=== PATIENT | female | born 1960 | race Caucasian/White ===

== ENCOUNTER → 2018-10-16 08:14 | Outpatient (CLI) | payer BC, SELFPAY ==
[2018-10-16 09:47] LABS: Anion Gap 8 (5-15); BUN 14 mg/dL (7-18); BUN/Creat Ratio 20.9 RATIO (10-20); Calcium,Total 8.8 mg/dL (8.5-10.1); Chloride 105 mmol/L (98-107); Cholesterol 221 mg/dL (200); Creatinine, Serum 0.67 mg/dL (0.55-1.02); EST Glomerular Filtration Rate 97 mL/min (>60); Est Glom Filt Rate - Afr Amer 117 mL/min (>60); Glucose 88 mg/dL (74-106); High Density Lipoprotein 60 mg/dL; Potassium 4.4 mmol/L (3.5-5.1); Sodium Level 141 mmol/L (136-145); Triglycerides 158 mg/dL; Very Low Density Lipoprotein 32 mg/dL (5-40)
== END ==
PROVIDERS: Family Provider Family Medicine; PCP Family Medicine; Referring Provider Nurse Practitioner Adult Health; Visit Provider Nurse Practitioner Adult Health
DX: Z13.220 Encounter for screening for lipoid disorders (principal); Z13.1 Encounter for screening for diabetes mellitus
CPT/HCPCS: 36415; 80048; 80061

== ENCOUNTER → 2018-10-29 15:37 | Outpatient (CLI) | payer BC, SELFPAY ==
--- NOTE | 2018-10-29 15:47 | BD_ITS ---
STUDY: DUAL ENERGY X-RAY ABSORPTIOMETRY / DXA REASON FOR EXAM: Female, 58 years old. Early menopause. Loss of height. TECHNIQUE: Bone Mineral Density (BMD) measurements of lumbar spine and bilateral hips were obtained. COMPARISON: None. FINDINGS: Lumbar Spine (L1-L4): g/cm2 (1.128) / T-score (-0.6) / Z-score (0.3) Findings are suggestive of normal bone density with a low fracture risk. Left Femur Total: g/cm2 (0.937) / T-score (-0.6) / Z-score (0.1) Left Femoral Neck: g/cm2 (0.988) / T-score (-0.4) / Z-score (0.7) Right Femur Total: g/cm2 (0.936) / T-score (-0.6) / Z-score (0.1) Right Femoral Neck: g/cm2 (0.941) / T-score (-0.7) / Z-score (0.4) BD/Dexa Bone Density Study IMPRESSION: The patient is considered normal as outlined below according to World Ryan Organization (WHO) criteria with a low fracture risk. Reference Information: The T-score is the number of standard deviations above or below the standard which is normal for young adults at their peak bone mineral density. The World Health Organization (WHO) interprets the T-scores as follows: Above -1 Normal bone density Between -1 and -2.5 Osteopenia Equal to / or below -2.5 Osteoporosis As a practical clinical guideline, osteopenia may be graded as follows: Mild -1 through -1.5 Moderate -1.6 through -2.0 Severe -2.1 through -2.4 The Z-score is the number of standard deviations above or below age-matched controls. A Z-score of less than -1.5 would be considered abnormal. References: 1. NIH Osteoporosis and Related Bone Diseases http://www.osteo.org 2. International Society for Clinical Densitometry http://www.iscd.org 3. National Osteoporosis Foundation http://www.nof.org Electronically Signed: Teo Gamboa MD at 14:55 EST Tel [phone], Service support ,
== END ==
PROVIDERS: Family Provider Family Medicine; PCP Family Medicine; Visit Provider Nurse Practitioner Adult Health
DX: Z78.0 Asymptomatic menopausal state (principal)
CPT/HCPCS: 77080

== ENCOUNTER → 2018-11-12 07:37 | Outpatient (CLI) | payer BC, SELFPAY ==
--- NOTE | 2018-11-12 07:39 | BI_ITS ---
MAMMOGRAPHY - BILATERAL SCREENING REASON FOR EXAM: Female, 58 years old. Routine annual screening examination. PERTINENT HISTORY: Non-contributory. TECHNIQUE: Digital bilateral breast pauline (3D mammographic acquisition) in the CC and MLO projections. 2-D mediolateral oblique (MLO) and craniocaudad (CC) views of both breasts were obtained. CAD: Full Field Digital Mammography with Computer Added Detection was performed. COMPARISON: Comparison is made with prior examination dated August 10, 2008. FINDINGS: Breast Composition: The breasts are extremely dense, which lowers the sensitivity of mammography. There are no dominant masses or suspicious calcifications. No other significant abnormalities are identified. There has been no significant change since the prior study. BI/SCREENING MAMM (CAD), BILAT IMPRESSION: Stable bilateral screening mammogram. Yearly follow-up mammogram recommended. (A) ASSESSMENT CATEGORY: BIRADS Category 1: Negative. A letter regarding these results will be sent to the patient by the facility within 30 days. Approximately 10% of breast cancers are not detected by mammography. A normal mammogram should not delay biopsy of a clinically suspicious abnormality. [id number] Electronically Signed: Teo Gamboa MD at 14:59 EST Tel [phone], Service support ,
== END ==
PROVIDERS: Family Provider Family Medicine; PCP Family Medicine; Visit Provider Nurse Practitioner Adult Health
DX: Z12.31 Encounter for screening mammogram for malignant neoplasm of breast (principal); Z78.0 Asymptomatic menopausal state
CPT/HCPCS: 77063; 77067

== ENCOUNTER 2019-08-08 12:29 | Emergency (ER) | payer BC, SELFPAY ==
[2019-08-08 12:30] VITALS: BP 115/73; PULSE 72; RESP 18; TEMP 36.5; O2SAT 95; BMI 25.0
--- NOTE | 2019-08-08 13:05 | ED.DCSUM_ITS ---
- ER Visit Summary Date of Service: 08/08/19 Chief Complaint: Fell complaining of right lateral ankle pain and left knee pain History of Present Illness: The patient is a 59 F past medical history. Patient states she was walking out of her house. When she stepped off the step she rolled her right ankle and then fell landing on her left knee. Did not hit her head. No LOC no neck or back pain. Physical Examination: Middle-aged female. Vital signs are stable. HEENT exam unremarkable atraumatic. No signs of trauma to her face or scalp. C-spine nontender normal range of motion her neck. Lungs clear to auscultation bilaterally. Chest wall nontender. Heart regular rhythm no murmur. Abdomen soft nontender. Pelvic girdle intact. Back cervical, thoracic lumbar spine and back nontender. Neurologically she is awake alert moving all 4 extremities. She has swelling to her right lateral malleolus and is tender medial malleolus is nontender. DP pulses are intact. She is able to dorsi plantarflexion of the right foot is normal touch sensation. Can wiggle her toes. The right foot. Right knee and hip are nontender. Left ankle left foot nontender neurovascular intact. Left hip nontender with normal range of motion no shortening or rotation. Left knee there is no abrasion medially. She is able to do flexion extension. She is able to extend the knee completely. The quadriceps patella and infrapatellar tendons are intact. The ACL, PCL, LCL and MCL appear to be intact. There is mild tenderness medially. Test Results: X-ray right ankle 3 views no acute abnormality. Old fracture medial aspect of the distal tibia. Soft tissue swelling of the lateral malleolus. I did go over the films with the patient. Read by myself. X-ray right knee 4 views with no acute abnormality read by myself. Emergency Department Course and Treatment: Repeat exam patient is doing well at 1420 p.m. She denied discussed test results and went over the x-rays. Treatment Plan: Aircast right ankle. Follow-up if not improving. Patient elevate. Motrin. Disposition: Discharge Impression: Acute fall Right ankle second-degree lateral malleolus sprain Left knee contusion and abrasion This note was generated with Data[employer] software. It may contain incorrect words, spelling, and punctuation that were not noted in review of the chart prior to signing ED Disposition - Plan for ED Patient: Referrals: Aj Villanueva MD [STAFF PHYSICIAN] -
--- NOTE | 2019-08-08 13:36 | RAD_ITS ---
STUDY: X-RAY - RIGHT ANKLE REASON FOR EXAM: Female, 59 years old. Fall. Pain. TECHNIQUE: 3 view(s) of the ankle. COMPARISON: None. FINDINGS: Normal visualized distal tibia and fibula. Small avulsion chip fractures involving the undersurface of the medial malleolus and lateral malleolus. Normal tibiotalar articulation and ankle mortise. Normal visualized talus and calcaneus. The visualized subtalar, talonavicular, calcaneocuboid and tarsal articulations are normal. Soft tissue swelling overlying the lateral malleolus. RAD/Ankle min 3 Views IMPRESSION: Small avulsion fracture fragments in the undersurfaces of the lateral malleolus and medial malleolus of the right ankle. Electronically Signed: Kadeem Christohper MD at 14:49 EDT , Service support ,
--- NOTE | 2019-08-08 13:36 | RAD_ITS ---
STUDY: X-RAY - LEFT KNEE REASON FOR EXAM: Female, 59 years old. Fall. Pain. TECHNIQUE: 4 view(s) of the knee. COMPARISON: September 01, 2014 FINDINGS: Normal visualized distal femur. Normal visualized proximal tibia and fibula. Normal proximal tibiofibular articulation. There is no demonstrated fracture. There is mild degenerative arthrosis of the medial femorotibial compartment. There is moderate degenerative arthrosis of the lateral femorotibial compartment with moderate joint space narrowing. There is mild degenerative arthrosis of the patellofemoral articulation. The soft tissue structures are unremarkable. RAD/Knee 4 or More Views IMPRESSION: Degenerative arthrosis. Electronically Signed: Kvng Landis MD at 15:03 EDT , Service support ,
--- NOTE | 2019-08-08 14:29 | ED.DEP ---
ED Disposition - Plan for ED Patient: Disposition: Home or Assisted Living Instructions: CONTUSION, Lower Extremity, Sprain, Ankle, with X-Ray Referrals: Deangelo Magana MD [Primary Care Provider] - 1 Week if not improving Additional Instructions: Elevate the right ankle to decrease pain and swelling. Aircast whenever up and walking. Increase activity as tolerated. You may want to start out with crutches and touchdown weightbearing. Keep left knee abrasion clean and antibiotic ointment to prevent infection. Follow-up with your doctor if not improving in 1 to 2 weeks.
[2019-08-08 14:50] VITALS: RESP 18
== END 2019-08-08 14:51 | disposition home or self-care (01) ==
PROVIDERS: Emergency Provider Emergency Medicine; Family Provider Family Medicine; PCP Family Medicine
DX: S93.492A Sprain of other ligament of left ankle, initial encounter (principal); S80.02XA Contusion of left knee, initial encounter; S80.212A Abrasion, left knee, initial encounter; W10.8XXA Fall (on) (from) other stairs and steps, initial encounter; Y93.01 Activity, walking, marching and hiking; Y92.009 Unspecified place in unspecified non-institutional (private) residence as the place of occurrence of the external cause; M17.12 Unilateral primary osteoarthritis, left knee
CPT/HCPCS: 73564; 73610; 99284

== ENCOUNTER → 2019-08-25 09:53 | Outpatient (CLI) | payer BC, SELFPAY ==
[2019-08-08 12:30] VITALS: BMI 25.0
[2019-08-25 13:22] LABS: Anion Gap 9 (5-15); BUN 19 mg/dL (7-18); BUN/Creat Ratio 29.6 RATIO (10-20); Calcium,Total 9.3 mg/dL (8.5-10.1); Chloride 105 mmol/L (98-107); Cholesterol 296 mg/dL (200); Creatinine, Serum 0.64 mg/dL (0.55-1.02); EST Glomerular Filtration Rate 101 mL/min (>60); Est Glom Filt Rate - Afr Amer 123 mL/min (>60); Glucose 82 mg/dL (74-106); High Density Lipoprotein 51 mg/dL; Potassium 4.4 mmol/L (3.5-5.1); Sodium Level 140 mmol/L (136-145); Triglycerides 214 mg/dL; Very Low Density Lipoprotein 43 mg/dL (5-40)
== END ==
PROVIDERS: Family Provider Family Medicine; PCP Family Medicine; Referring Provider Nurse Practitioner Adult Health; Visit Provider Nurse Practitioner Adult Health
DX: Z13.1 Encounter for screening for diabetes mellitus (principal); Z13.220 Encounter for screening for lipoid disorders
CPT/HCPCS: 36415; 80048; 80061

== ENCOUNTER → 2019-10-30 08:31 | Outpatient (CLI) | payer BC, SELFPAY ==
[2019-10-30 10:35] LABS: AST(SGOT) 25 U/L (15-37); Alanine Aminotransfer ALT/SGPT 29 U/L (13-56); Cholesterol 185 mg/dL (200); High Density Lipoprotein 66 mg/dL; Triglycerides 77 mg/dL; Very Low Density Lipoprotein 15 mg/dL (5-40)
== END ==
PROVIDERS: Family Provider Family Medicine; PCP Family Medicine; Referring Provider Nurse Practitioner Adult Health; Visit Provider Nurse Practitioner Adult Health
DX: Z13.1 Encounter for screening for diabetes mellitus (principal); Z13.220 Encounter for screening for lipoid disorders; E78.5 Hyperlipidemia, unspecified
CPT/HCPCS: 36415; 80061; 84450; 84460

== ENCOUNTER → 2019-11-02 16:13 | Outpatient (CLI) | payer BC, SELFPAY ==
--- NOTE | 2019-11-02 16:20 | RAD_ITS ---
STUDY: X-RAY - RIGHT ANKLE REASON FOR EXAM: Female, 59 years old. Sprain TECHNIQUE: 4 view(s) of the ankle. COMPARISON: August 08, 2019 FINDINGS: There appears to be very tiny old avulsion or chip fracture of the distal fibula plafond. There appears to be very tiny old chip fracture of the distal tibial plafond with mild separation of fracture fragment. Normal medial and lateral malleoli. Normal tibiotalar articulation and ankle mortise. Normal visualized talus and calcaneus. The visualized subtalar, talonavicular, calcaneocuboid and tarsal articulations are normal. There is mild bimalleolar soft tissue swelling. RAD/Ankle min 3 Views IMPRESSION: Old tibial and fibular fractures. No evidence for acute fracture Electronically Signed: Jaswant Drew MD at 19:19 EST , Service support ,
== END ==
PROVIDERS: Family Provider Family Medicine; PCP Family Medicine; Referring Provider Family Medicine; Visit Provider Family Medicine
DX: S93.401A Sprain of unspecified ligament of right ankle, initial encounter (principal)
CPT/HCPCS: 73610

== ENCOUNTER 2020-05-30 16:00 | Outpatient (RCR) | payer BC, SELFPAY ==
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
--- NOTE | 2020-05-31 07:03 | HP.PTREVAL ---
Dr. Deangelo Magana MD, It has been my pleasure to treat MILENA JEAN BAPTISTE over the last 10 visits for Right Hip Flexor and Left Post Meniscal Tear. Please see the progress note below for an update on the physical therapy plan of care! Subjective: LEFS filled out today. Pt sees PT for a recheck after this session w/ [facility]. pt is wearing an over the counter brace that is relieving some of her pain. pt L knee is still symptomatic and swollen. Objective/Function: pt feels her L knee is not the same since the flare up after PT session last Friday. pt sees PT after this visit w/ [facility]. Plan Plan: Recheck by PT today.Focus on LE and core strength/stabilization bilateral Goals Goal 1:: Patient will be I with HEP and progression Goal Time Frame: 4-6 Weeks Goal Progress: Progressing Goal 2:: Patient will sls for 15 sec without LOB Goal Time Frame: 4-6 Weeks Goal Progress: Progressing Goal 3:: Patient will maintain proper posture t/o tx session to demo increased core s/s Goal Time Frame: 4-6 Weeks Goal Progress: Progressing Goal 4:: Patient will report 0/10 pain for 1 week Goal Time Frame: 4-6 Weeks Goal Progress: Not Progressing Goal 5:: Patient will demo 5/5 strength in LE Goal Time Frame: 4-6 Weeks Goal Progress: Progressing Anticipated Interventions Patient/Client Instruction: Educate patient on: Benefits of Fitness Program Therapeutic Exercise to Include: Strength training, Balance training, Body mechanics, Postural training, Flexibilty training, Gait and locomotor training, Dynamic Lumbar Stabilization For the Purpose of:: To improve muscle performance and motor function TENS: Yes Cryotherapy (ice pack, ice massage): Yes Thermo therapy (hot pack): Yes Ultrasound (thermal/non thermal): Yes For the Purpose of:: To improve nutrient delivery to tissue Please do not hesitate to contact me at [phone] by phone or if you have questions or concerns regarding this new plan of care! Sincerely, Marlene Kidd DPT
--- NOTE | 2020-08-21 14:42 | HP.PT.NRP ---
MILENA JEAN BAPTISTE was seen in my office for initial evaluation on 05/02/20. The following Plan of Care was established for this patient: Initial Frequency: 3x /Week Initial Duration: 4 Weeks Patient/Client Instruction: Educate patient on: Benefits of Fitness Program Therapeutic Exercise to Include: Strength training, Balance training, Body mechanics, Postural training, Flexibilty training, Gait and locomotor training, Dynamic Lumbar Stabilization For the Purpose of:: To improve muscle performance and motor function TENS: Yes Cryotherapy (ice pack, ice massage): Yes Thermo therapy (hot pack): Yes Ultrasound (thermal/non thermal): Yes For the Purpose of:: To improve nutrient delivery to tissue This patient was last seen in our office . Pertinent comments regarding their Physical therapy will appear below: At this point I will be discontinuing this patient from physical therapy. I would be happy to see this patient again in the future if found appropriate by the physician. Thank you! Marlnee Kidd DPT
== END 2020-05-30 19:00 | disposition home or self-care (01) ==
LOC: PT 16:00
PROVIDERS: PCP Family Medicine; Referring Provider Family Medicine; Visit Provider Family Medicine
DX: S83.207D Unspecified tear of unspecified meniscus, current injury, left knee, subsequent encounter (principal); S76.011D Strain of muscle, fascia and tendon of right hip, subsequent encounter
CPT/HCPCS: 97014; 97035; 97110; 97162; 97164; G0283

== ENCOUNTER → 2020-07-20 15:41 | Outpatient (CLI) | payer BC, SELFPAY ==
--- NOTE | 2020-07-20 15:45 | RAD_ITS ---
STUDY: X-RAY - LEFT KNEE REASON FOR EXAM: Female, 60 years old. Left knee pain, fell one year ago TECHNIQUE: 4 view(s) of the knee. COMPARISON: None. FINDINGS: Normal visualized distal femur. Normal visualized proximal tibia and fibula. Normal proximal tibiofibular articulation. Mild narrowing with faint chondrocalcinosis medial femorotibial compartment. Mild narrowing with faint chondrocalcinosis of the lateral femorotibial compartment. Normal patellofemoral articulation. Soft tissue swelling overlying the medial aspect of the left knee. RAD/Knee 4 or More Views IMPRESSION: 1. Mild narrowing with faint chondrocalcinosis in the medial and lateral femorotibial compartments of the left knee. 2. No acute fracture, old fracture or acute osseous abnormality of the left knee. Electronically Signed: Kadeem Christopher MD at 9:00 EDT , Service support ,
== END ==
PROVIDERS: PCP Family Medicine; Referring Provider Family Medicine; Visit Provider Family Medicine
DX: M25.562 Pain in left knee (principal)
CPT/HCPCS: 73564

== ENCOUNTER → 2020-08-04 15:29 | Outpatient (CLI) | payer BC, SELFPAY ==
--- NOTE | 2020-08-04 15:34 | MRI_ITS ---
STUDY: MRI LEFT KNEE REASON FOR EXAM: Female, 60 years old. Knee pain TECHNIQUE: Standardized fat and water weighted pulse sequences were obtained in all 3 orthogonal planes. COMPARISON: 07/20/2020 FINDINGS: Normal medial meniscus. Normal hyaline cartilage of the medial femorotibial compartment. Normal medial femoral condyle and tibial plateau. Normal medial collateral ligamentous complex (MCL). Normal distal semimembranosus, gracilis and semitendinosus tendons. 3 cm horizontal cleavage tear of the lateral meniscus with extrusion of the body. There is diffuse, full thickness articular cartilage loss of the lateral femorotibial compartment. There is reactive marrow edema of the lateral femoral condyle and tibial plateau. Normal proximal tibiofibular articulation. Normal lateral collateral (fibular) ligament. Normal popliteus tendon. Normal biceps femoris tendon. Normal anterior cruciate ligament (ACL). Normal posterior cruciate ligament (PCL). Shallow trochlear groove with lateral subluxation of patella and edema superolateral Hoffa''s fat pad consistent with patellofemoral maltracking. There is diffuse, less than 50% thickness articular cartilage loss of the patellofemoral compartment. Normal medial and lateral patellar retinaculum. Normal quadriceps tendon. Normal patellar tendon. Normal Hoffa''s fat pad. There is a small volume joint effusion. There is a Brumfield''s cyst. The soft tissues are unremarkable. The otherwise visualized osseous structures are unremarkable. MRI/Lower Ext Joint Only (Routine) IMPRESSION: 1. Lateral compartment failure with a 3 cm horizontal cleavage tear of the anterior horn and body the lateral meniscus with extrusion of the body, full-thickness chondral loss, and subchondral edema of the lateral femoral condyle lateral tibial plateau. 2. Patellofemoral maltracking with mild chondromalacia. Electronically Signed: Yassine Corona MD at 16:49 EDT Tel , Service support ,
== END ==
PROVIDERS: PCP Family Medicine; Referring Provider Family Medicine; Visit Provider Family Medicine
DX: S83.282A Other tear of lateral meniscus, current injury, left knee, initial encounter (principal); X58.XXXA Exposure to other specified factors, initial encounter
CPT/HCPCS: 73721

== ENCOUNTER → 2020-09-23 08:57 | Outpatient (CLI) | payer BC, SELFPAY ==
[2020-09-23 09:51] LABS: Cholesterol 173 mg/dL (200); High Density Lipoprotein 65 mg/dL; Triglycerides 80 mg/dL; Very Low Density Lipoprotein 16 mg/dL (5-40)
== END ==
PROVIDERS: PCP Family Medicine; Referring Provider Nurse Practitioner Adult Health; Visit Provider Nurse Practitioner Adult Health
DX: E78.5 Hyperlipidemia, unspecified (principal)
CPT/HCPCS: 36415; 80061

== ENCOUNTER → 2021-09-22 09:01 | Outpatient (CLI) | payer BC, SELFPAY ==
[2021-09-22 10:08] LABS: ALB/GLOB Ratio 1.1 RATIO (0.9-2.4); AST(SGOT) 26 U/L (15-37); Alanine Aminotransfer ALT/SGPT 32 U/L (13-56); Alkaline Phosphatase 84 U/L (45-117); Anion Gap 11 (5-15); BUN 21 mg/dL (7-18); BUN/Creat Ratio 32.5 RATIO (10-20); Calcium,Total 8.9 mg/dL (8.5-10.1); Chloride 104 mmol/L (98-107); Cholesterol 177 mg/dL (200); Creatinine, Serum 0.65 mg/dL (0.55-1.02); EST Glomerular Filtration Rate 100 mL/min (>60); Est Glom Filt Rate - Afr Amer 121 mL/min (>60); Globulin 3.8 g/dL (2.2-4.2); Glucose 97 mg/dL (74-106); High Density Lipoprotein 69 mg/dL; Potassium 4.1 mmol/L (3.5-5.1); Protein, Total 7.8 g/dL (6.4-8.2); Sodium Level 139 mmol/L (136-145); Triglycerides 90 mg/dL; Very Low Density Lipoprotein 18 mg/dL (5-40)
[2021-09-24 10:36] LABS: Vitamin D,25 Hydroxy 30.4 ng/mL
== END ==
PROVIDERS: PCP Family Medicine; Visit Provider Family Medicine
DX: E78.5 Hyperlipidemia, unspecified (principal)
CPT/HCPCS: 36415; 80053; 80061; 82306

== ENCOUNTER → 2021-10-11 16:24 | Outpatient (CLI) | payer BC, SELFPAY ==
[2021-10-11 17:42] LABS: Hematocrit 39.2 % (37-47); Hemoglobin 13.2 g/dL (12.0-15.0); Mean Corp Hgb Conc 33.7 g/dL (32-36); Mean Corpuscular Hgb 36.4 pg (27.0-32.0); Mean Platelet Vol. 9.1 fl (6.2-12.0); Platelet Count 228 K/mm3 (150-450); RBC Distribution Width CV 12.8 % (11.6-14.6); RBC Distribution Width SD 51.7 fl (35.1-43.9); Red Blood Count 3.63 M/mm3 (4.2-5.4); White Blood Count 7.4 K/mm3 (4.4-11.0)
[2021-10-11 18:02] LABS: Erythrocyte Sedimentation Rate 6 mm/hr (0-30)
[2021-10-11 18:24] LABS: Vitamin B12 713 pg/mL (211-911); Vitamin D,25 Hydroxy 35.6 ng/mL
[2021-10-11 18:50] LABS: Iron 100 ug/dL (50-170); Thyroid Stim Hormone (TSH) 1.86 uIU/mL (0.358-3.74)
== END ==
PROVIDERS: PCP Family Medicine; Referring Provider Family Medicine; Visit Provider Family Medicine
DX: R53.83 Other fatigue (principal)
CPT/HCPCS: 36415; 82306; 82607; 83540; 84443; 85027; 85652

== ENCOUNTER → 2021-10-31 | Outpatient (CLI) | payer BC, SELFPAY | END | disposition home or self-care (01) | PROVIDERS: PCP Family Medicine; Referring Provider Family Medicine; Visit Provider Family Medicine | DX: R10.84 Generalized abdominal pain (principal) | CPT/HCPCS: 87086; 87088 ==

== ENCOUNTER → 2021-11-14 07:40 | Outpatient (CLI) | payer BC, SELFPAY ==
--- NOTE | 2021-11-14 07:43 | CT_ITS ---
STUDY: LOW DOSE CT LUNG CANCER SCREENING REASON FOR EXAM: Female, 61 years old. TOBACCO USE RADIATION DOSAGE (If Supplied By Facility): CTDIvol = ( 3.02 ) mGy, DLP = ( 100.43 ) mGycm TECHNIQUE: No contrast was administered. Low dose technique was utilized (average mAS-38 and kVp 120). 1.25 mm axial source images with a slice interval of 1.25-mm were reconstructed in lung windows. 2.5 mm axial source images with a slice interval of 2.5-mm were reconstructed in lung windows. 5.0 mm axial source images with a slice interval of 5.0-mm were reconstructed in soft tissue windows. Nodule measured using lung windows on PACS and/or independent workstation with automated measurement of minimum and maximum diameter. Nodule measurement reported as average diameter rounded to the nearest whole number. Growth is defined as an increase ins size of greater than 1.5 mm. COMPARISON: None. NODULES: No suspicious nodule is seen. Emphysema: Diffuse centrilobular emphysematous changes worse in the upper lobes. Endobronchial lesion: None Aorta: Atherosclerotic plaque formation. Coronary arteries: Coronary artery calcification. Heart: Unremarkable. Pulmonary artery: Unremarkable. Mediastinal nodes: Small mediastinal lymph nodes. Other chest and abdominal findings: Degenerative changes of the dorsal spine. CT/Low Dose CT Lung Screening IMPRESSION: Lung-RADS category 2 - Continue annual screening with LDCT in 12 months. IMPORTANT NOTES FOR USE: ACR Lung-RADS Version 1.1 Assessment Categories Release Date: 2018 Category: Coded 0-4 bases on nodule(s) with highest degree of suspicion. Negative screen is defined as categories 1 and 2; a positive screen is defined as categories 3 and 4. Category 3 and 4A nodules that are unchanged on interval CT should be coded as category 2, and individuals returned to screening in 12 months. Category 4X: Category 3 or 4 nodules with additional imaging findings that increase the suspicion of lung cancer, such as spiculation, GGN that doubles in size in 1 year, enlarged lymph notes, etc. Category Modifiers: S (significant finding unrelated to lung cancer) Electronically Signed: Teo Gamboa MD at 11:20 EST , Service support ,
--- NOTE | 2021-11-14 07:51 | CT_ITS ---
STUDY: CT ABDOMEN AND PELVIS WITH CONTRAST REASON FOR EXAM: Female, 61 years old. Diffuse abdominal pain. Mucous and blood in the stool. RADIATION DOSAGE (If Supplied By Facility): CTDIvol = ( 13.83 ) mGy, DLP = ( 871.80 ) mGycm TECHNIQUE: Transaxial images were obtained from the dome of the diaphragm to the symphysis pubis with oral contrast. Oral and amp; IV Readi-CAT and amp; 100mL Isovue-300 was administered. Sagittal and coronal images were reconstructed. Individualized dose optimization techniques were used for this CT. COMPARISON: None. FINDINGS: The visualized lung bases are unremarkable. Coronary artery calcification. Normal liver. Normal gallbladder and extrahepatic biliary system. Normal spleen. Normal pancreas. Normal bilateral adrenal glands. Normal right kidney. Normal left kidney. Normal visualized stomach. Normal small intestine. Moderate amount of fecal material is seen throughout the colon. The appendix is visualized and appears normal. There is scattered atherosclerotic calcification of the abdominal aorta, without a demonstrated aneurysm. Normal inferior vena cava. Normal retroperitoneum. Normal urinary bladder. There is a small umbilical hernia containing fat. There are degenerative changes of the visualized lumbar spine. CT/Abdomen/Pelvis WITH Contrast IMPRESSION: Moderate amount of fecal material is seen throughout the colon. Electronically Signed: Teo Gamboa MD at 9:44 EST , Service support ,
== END ==
PROVIDERS: PCP Family Medicine; Referring Provider Family Medicine; Visit Provider Family Medicine
DX: R10.84 Generalized abdominal pain (principal); F17.210 Nicotine dependence, cigarettes, uncomplicated
CPT/HCPCS: 71271; 74177; Q9967

== ENCOUNTER 2022-03-03 13:52 | Emergency (ER) | payer BC, SELFPAY ==
[2022-03-03 13:52] VITALS: BP 148/109; PULSE 117; RESP 15; TEMP 37; O2SAT 96; BMI 25.2
--- NOTE | 2022-03-03 14:04 | EDS_ITS ---
HPI History of Present Illness Chief Complaint: General Illness Narrative Narrative: 61-year-old female presenting with several days of intermittent diarrhea, mild headache, left-sided neck pain. Patient states that she has felt somewhat rundown but is able to do her ADLs. She is able to ambulate without weakness or falling. She states her abdomen sometimes hurt on the right side in the lower quadrant. She states this is nothing that is very bad. She has associated nausea. She has not been vomiting. She denies black or bloody stools. Patient states that the left side of her neck started hurting after several days of being ill and laying around. She is been doing neck exercises and trying to relieve the stiffness. She has trouble turning to the left. She has a mild intermittent headache. No visual complaints. She has not had a fever. Patient initially went to the urgent care prior to coming to the emergency room and was sent to the emergency room for meningitis work-up. PFSH PFSH Home Medications cyclobenzaprine 10 mg PO TID PRN PRN 08/08/19 [History Last Taken Unknown] Allergy/AdvReac Type Severity Reaction Status Date / Time No Known Allergies Allergy Verified 03/03/22 13:52 Social History Smoking Status: Former smoker ROS ROS ED Constitutional Constitutional ED: Denies chills or fever(s) Eyes Eyes: Denies blurry vision or diplopia ENT ENT ED: Denies rhinorrhea or sore throat Cardiovascular Cardiovascular: Denies chest pain or palpitations Respiratory/Chest Respiratory/Chest: Denies cough or dyspnea Gastrointestinal Gastrointestinal: Reports abdominal pain Genitourinary Genitourinary ED: Denies dysuria or hematuria Musculoskeletal Musculoskeletal: Reports neck pain Integumentary Denies rash Neurologic Neurologic: Reports headache(s); Denies paresthesias or weakness Psychiatric Psychiatric: Denies anxiety or depression EXAM Physical Exam Const Vital Signs: 03/03/22 13:52 03/03/22 14:18 03/03/22 14:29 Temperature 98.6 F 97.9 F Temperature Source Temporal Oral Pulse Rate 117 H 92 Respiratory Rate 15 24 H Respiratory Effort Normal Non-Labored Blood Pressure 148/109 H 137/87 H Blood Pressure Mean 122 103 Pulse Ox 96 Oxygen Delivery Method Room Air 03/03/22 15:15 Temperature 98.0 F Temperature Source Temporal Pulse Rate 71 Respiratory Rate 14 Respiratory Effort Blood Pressure 115/85 H Blood Pressure Mean 95 Pulse Ox Oxygen Delivery Method Positive well nourished General Appearance ED: NAD BRAYDON Reports moist mucous membranes Negative for trauma Eyes PERRL and EOMs intact bilaterally General Eye ED: Negative for pale conjunctiva or scleral icterus Neck no lymphadenopathy and supple General: normal visual inspection and trachea midline; Negative for meningeal signs Resp normal respiratory effort and clear to auscultation bilaterally Cardio regular rhythm Rate: tachycardic GI normal to inspection, nondistended, normoactive bowel sounds Auscultation: normoactive bowel sounds Back/Spine no CVA tenderness Back/Spine Narrative: Tenderness also elicited on palpation of the trapezius. Cervical Spine: cervical ROM abnormal Cervical ROM Abnormal Details: rotation to the left decreased, Negative for step off deformity and paracervical muscle tenderness Paracervical Muscle Tenderness Details: left Extremity normal to inspection General Extremety ED: Negative for edema or tenderness General Extremity: Negative for edema Neuro oriented x3, CN's II-XII intact bilaterally and no sensory deficits noted Sensorium / Orientation: alert Motor Exam: strength 5/5 throughout Skin no rashes or lesions noted MDM MDM MDM Narrative Medical decision making narrative: Patient presenting with generalized fatigue, mild intermittent right-sided abdominal pain, diarrhea for about a week. She has not had a fever or temperature over 100. Initially seen in urgent care and sent to the ER for concern for meningitis. Initial interview the patient is well-appearing awake and alert standing with the lights on. She is talking to me moving nodding yes and shaking her head no to questions. She does have some limitation with turning to the left and has some tenderness over the left trapezius. No midline spinal deformity step-off. No meningeal signs. Her abdominal exam is benign. Patient given Zofran, Toradol, IV fluids. Will check basic lab work and urinalysis. She has no respiratory complaints. CBC and CMP are unremarkable. Urinalysis does show 25 occult blood. No evidence of infection. Patient feeling improved after Toradol and Zofran. Discussed normal lab work with her. CT of the abdomen pelvis is obtained and does not show any acute abdominal abnormality. Patient feeling improved at this time. Although she was sent here for meningitis rule out I do not believe she has meningitis. Her neck pain is in the paraspinal musculature and in the left trapezius. There is no spinal tenderness. Did not believe she needs imaging or an LP. Patient believes she injured her neck while retching and vomiting. I feel she is stable for discharge home and I will write her for [facility] for home. Patient given return precautions. Impression: 1. Nausea/vomiting 2. Diarrhea 3. Abdominal pain 4. Headache 5. Cervical strain Lab Data Attestation: I reviewed the patient's lab results. Labs: Laboratory Results - last 24 hr 03/03/22 03/03/22 03/03/22 14:20 14:20 14:25 WBC 10.1 RBC 3.85 L Hgb 13.9 Hct 41.0 MCV 106.5 H MCH 36.1 H MCHC 33.9 RDW Std Deviation 49.1 H RDW Coeff of Chandana 12.4 Plt Count 251 MPV 9.0 Immature Gran % (Auto) 0.300 Neut % (Auto) 72.9 H Lymph % (Auto) 15.6 L [place] % (Auto) 10.6 H Eos % (Auto) 0.3 Baso % (Auto) 0.3 Absolute Neuts (auto) 7.4 Absolute Lymphs (auto) 1.57 Nucleated RBC % 0 Sodium 134 L Potassium 3.5 Chloride 102 Carbon Dioxide 24.0 Anion Gap 8 BUN 16 Creatinine 0.68 Estim Creat Clear Calc 80.16 Est GFR (MDRD) Af Amer 114 Est GFR (MDRD) Non-Af 94 BUN/Creatinine Ratio 23.5 H Glucose 102 Calcium 9.1 Total Bilirubin 0.80 AST 19 ALT 24 Alkaline Phosphatase 77 Total Protein 8.2 Albumin 3.6 Globulin 4.6 H Albumin/Globulin Ratio 0.8 L Lipase 58 L Urine Color Yellow Urine Clarity Clear Urine pH 6.0 Ur Specific [place] 1.015 Urine Protein Negative Urine Glucose (UA) Normal Urine Ketones Negative Urine Occult Blood 25 H Urine Nitrite Negative Urine Bilirubin Negative Urine Urobilinogen Normal Ur Leukocyte Esterase 25 H Urine RBC 0 SEEN Urine WBC 0-5 SEEN Ur Squamous Epith Cells 0 SEEN Urine Bacteria 0 SEEN Urine Mucus 0 SEEN Radiography Diagnostic Testing: Clinical Impression(s) from Imaging Studies Abdomen/Pelvis CT 03/03/22 14:48 IMPRESSION: No acute findings in the abdomen or pelvis. Individualized dose optimization techniques were used for this CT. at 1620 Reported and signed by: Stiven Curtis MD Electronically Signed: Stiven Curtis MD at 16:19 EDT Reading Location ID and State: [facility] / [place] Tel , Service support , Discharge Plan Triage Chief Complaint: General Illness ED Provider: Jewel Yuan Dx/Rx/DC Orders Prescriptions: No Action cyclobenzaprine 10 MG tablet 10 mg PO TID PRN PRN (Reason: Pain) RF: 0 Primary Care Provider: Deangelo Magana
[2022-03-03 14:28] LABS: Absolute Lymphocyte Count 1.57 X10^3/uL (0.83-4.51); Absolute Neutrophil Count 7.4 X10^3/uL (2.0-7.7); Basophil# 0.03 X10^3/uL; Basophil% 0.3 % (0-1); Eosinophil# 0.03 X10^3/uL; Eosinophils% 0.3 % (0-5); Hemoglobin 13.9 g/dL (12.0-15.0); Lymphocyte # 1.57 X10^3/ul (0.83-4.51); Lymphocyte % 15.6 % (19-41); Mean Corp Hgb Conc 33.9 g/dL (32-36); Mean Corpuscular Hgb 36.1 pg (27.0-32.0); Mean Corpuscular Volume 106.5 fL (81-99); Monocyte# 1.07 X10^3/uL; Monocyte% 10.6 % (0-10); NRBC Flagged by Analyzer 0 % (0-5); Neutrophil # 7.36 X10^3/uL (2.7-7.7); Neutrophil % 72.9 % (47-70); Platelet Count 251 K/mm3 (150-450); RBC Distribution Width CV 12.4 % (11.6-14.6); RBC Distribution Width SD 49.1 fl (35.1-43.9); Red Blood Count 3.85 M/mm3 (4.2-5.4); White Blood Count 10.1 K/mm3 (4.4-11.0)
[2022-03-03] MEDS: 0.9% Normal Saline 1,000 ML 1000 ML IV (14:28)
[2022-03-03 14:29] VITALS: BP 137/87; PULSE 92; RESP 24; TEMP 36.6
[2022-03-03] MEDS: Ondansetron 4 MG/2 ML Vial IV (14:34)
[2022-03-03] MEDS: Ketorolac 15 MG/ML Vial IV (14:34)
[2022-03-03 14:42] LABS: Bacteria 0 SEEN /hpf (None Seen); Mucous, Urine 0 SEEN /hpf (<or=2+); Red Blood Cells-Urine 0 SEEN /hpf (0-5); Squamous Epithelial Cells - UA 0 SEEN /hpf (5-10)
[2022-03-03 14:44] LABS: Color, Urine Yellow (Yellow); Glucose, Dipstick Normal (Normal); Ketone-Dipstick Negative (Negative); Leukocyte Esterase-Dipstick 25 /ul (Negative); Nitrite-Dipstick Negative (Negative); Occult Blood-Urine 25 /ul (Negative); Protein-Dipstick Negative (Negative); Specific Gravity, Urine 1.015 (1.002-1.030); Urine Bilirubin Dipstick Negative (Negative); Urine Clarity Clear (Clear); Urine Urobilinogen Normal (Normal)
[2022-03-03 14:44] LABS: ALB/GLOB Ratio 0.8 RATIO (0.9-2.4); AST(SGOT) 19 U/L (15-37); Alanine Aminotransfer ALT/SGPT 24 U/L (13-56); Albumin, Serum 3.6 g/dL (3.2-5.0); Alkaline Phosphatase 77 U/L (45-117); Anion Gap 8 (5-15); BUN 16 mg/dL (7-18); BUN/Creat Ratio 23.5 RATIO (10-20); Calcium,Total 9.1 mg/dL (8.5-10.1); Chloride 102 mmol/L (98-107); Creatinine, Serum 0.68 mg/dL (0.55-1.02); EST Glomerular Filtration Rate 94 mL/min (>60); Est Glom Filt Rate - Afr Amer 114 mL/min (>60); Estimated Creatinine Clearance 80.16 ml/min; Globulin 4.6 g/dL (2.2-4.2); Glucose 102 mg/dL (74-106); Lipase 58 U/L (73-393); Potassium 3.5 mmol/L (3.5-5.1); Protein, Total 8.2 g/dL (6.4-8.2); Sodium Level 134 mmol/L (136-145)
--- NOTE | 2022-03-03 14:48 | CT_ITS ---
HISTORY: abdominal pain EXAMINATION: CT Abdomen And Pelvis W/O Contrast Injection TECHNIQUE: Multiple axial images were obtained of the abdomen and pelvis without oral or IV contrast. A radiation dose optimization technique was used for this scan. IV Contrast dosage and agent: None. Oral contrast: None. COMPARISON: None FINDINGS: LOWER CHEST: Lung bases are clear. No cardiomegaly or pericardial effusion. LIVER: Homogeneous. No focal mass. GALLBLADDER AND BILIARY TREE: No calcified gallstones. No gallbladder distension or wall edema. No intra- or extrahepatic biliary ductal dilation. PANCREAS: No focal cystic or solid mass. SPLEEN: Normal size without focal cystic or solid mass. ADRENAL GLANDS: No nodules. KIDNEYS AND URETERS: Normal renal size and position. No hydronephrosis or nephrolithiasis. PERITONEUM: No ascites or free air. BOWEL: Normal appendix. No stomach or bowel distension. No focal inflammatory bowel wall changes. LYMPH NODES: No enlarged mesenteric or retroperitoneal lymph nodes. VESSELS: Aorta is non-dilated. URINARY BLADDER: Unremarkable. REPRODUCTIVE ORGANS: No pelvic masses. BTL clips. ABDOMINAL WALL: Small fat-containing umbilical hernia. BONES: No acute or aggressive abnormality. CT/Abdomen/Pelvis without Cont IMPRESSION: No acute findings in the abdomen or pelvis. Individualized dose optimization techniques were used for this CT. at 1620 Reported and signed by: Stiven Curtis MD Electronically Signed: Stiven Curtis MD at 16:19 EDT ,
--- NOTE | 2022-03-03 14:51 | ED.RN ---
This nurse at bedside when patient returns from restroom obtaining urine sample. Patient refused all treatment and became quiet, stated I don't want anything I can't drive on. On obtaining further details patient explained frustration with being sent for meningitis and wanting a antibiotic prescription and leaving. This nurse had lengthy conversation with patient on symptoms of meningitis also with concerns patient addressed about repetitive questions, explanation of ER process and how the questions asked are part of continuity of care. Also further explanation of the type of medication ordered and how neither would cause concern for ability of ADL or driving. Appreciation of explanations from patient and acceptance of further testing was accepted. Dr. Yuan aware of all patient concerns
[2022-03-03 14:52] LABS: White Blood Cells 0-5 SEEN /hpf (0-5)
[2022-03-03 15:15] VITALS: BP 115/85; PULSE 71; RESP 14; TEMP 36.7
--- NOTE | 2022-03-03 16:26 | EKG12_ITS ---
Test Reason : Blood Pressure : / mmHG Vent. Rate : 086 BPM Atrial Rate : 086 BPM P-R Int : 126 ms QRS Dur : 080 ms QT Int : 366 ms P-R-T Axes : 000 -25 034 degrees QTc Int : 437 ms Normal sinus rhythm Nonspecific ST and T wave abnormality Abnormal ECG When compared with ECG of 03-SEP-2005 17:21, No significant change was found Confirmed by ANAID DENNISON, JEFF ([id number]), medical transcription editor JESSICA BRO ([id number]) on 03/08/2022 1:29:18 PM Referred By: JOSE A Confirmed By:JULIAN WORRELL MD
[2022-03-03 16:45] VITALS: BP 113/78; PULSE 74
== END 2022-03-03 16:45 | disposition home or self-care (01) ==
PROVIDERS: Emergency Provider Student in an Organized Health Care Education/Training Program; PCP Family Medicine; Visit Provider Student in an Organized Health Care Education/Training Program
DX: R11.2 Nausea with vomiting, unspecified (principal); R19.7 Diarrhea, unspecified; R10.31 Right lower quadrant pain; S16.1XXA Strain of muscle, fascia and tendon at neck level, initial encounter; X58.XXXA Exposure to other specified factors, initial encounter; Z87.891 Personal history of nicotine dependence
CPT/HCPCS: 74176; 80053; 81001; 83690; 85025; 93005; 96361; 96374; 96375; 99282; J7030; A4216; J2405

== ENCOUNTER 2022-03-07 11:27 | Outpatient (CLI) | payer BC, SELFPAY ==
--- NOTE | 2022-03-07 11:29 | RAD_ITS ---
STUDY: X-RAY - CERVICAL SPINE REASON FOR EXAM: Female, 61 years old. CERVICALGIA TECHNIQUE: XR Spine Cervical 4 or 5 Views COMPARISON: None FINDINGS: Normal anterior atlantoaxial articulation. The odontoid process is obscured by the overlying hard palate on the open mouth view. Therefore, it is not fully evaluated by plain film. There is straightening of the normal cervical lordosis. There is multi-level endplate spondylosis. There is multi-level degenerative disc disease with multilevel disc space narrowing. There is multi-level osseous foraminal stenosis. Grade 1 anterolisthesis of C4 on C5. The soft tissue structures are unremarkable. RAD/Cerv Spine 4 or 5 Views IMPRESSION: There are degenerative changes as noted above. There is mild straightening of the normal cervical lordosis. This can suggest neck strain. The odontoid process is obscured by the overlying hard palate on the open mouth view. Therefore, it is not fully evaluated by plain film. Electronically Signed: Corey Camacho MD at 15:38 EDT ,
== END 2022-03-07 23:59 | disposition home or self-care (01) ==
LOC: MTRAD 11:28
PROVIDERS: PCP Family Medicine; Referring Provider Family Medicine; Visit Provider Family Medicine
DX: M54.2 Cervicalgia (principal)
CPT/HCPCS: 72050

== ENCOUNTER 2022-06-10 15:30 | Outpatient (RCR) | payer BC, SELFPAY ==
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
--- NOTE | 2022-04-08 16:32 | HP.PTREVAL_ITS ---
Dr. Deangelo Magana MD, It has been my pleasure to treat MILENA JEAN BAPTISTE over the last 10 visits for cervicalgia. Please see the progress note below for an update on the physical therapy plan of care! Subjective: PATIENT REPORTS SHE CAN MOVE HER HEAD A LOT BETTER SINCE STARTING PT AND THE PAIN IS A LOT LESS. PATIENT REPORTS HER NECK PAIN IS STILL CONSTANT AND RANGES 1-5/10. 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 PATIENT REPORTS INTERMITTENT PAIN, NUMBESS AND TINGLING DOWN DINA UE'S ONE AT A TIME TO WRIST. INTERMITTENT DENTAL LABORATORY SUPERVISOR WEAKNESS DINA. DAILY HEADACHES. OVER-ALL PATIENT REPORTS EVERYTHING IS MUCH BETTER THAN IT WAS AND IMPROVING. Objective/Function: PATIENT WAS SEEN TODAY FOR RE-ASSESSMENT OF PROGRESS TOWARD THE SET PT GOALS AND THE NEED FOR FURTHER PHYSICAL THERAPY VS READINESS FOR DISCHARGE. PATIENT IS A GOOD CANDIDATE TO CONTINUE PT BASED ON PROGRESS MADE AND ROOM FOR FURTHER IMPROVEMENT. PATIENT IS AGREEABLE. UPON EXAM TODAY: Cervical Mvmt Loss: Flex: MIN - PULLS IN NECK. Pro: NIL. Ext: MOD. Ret: MOD - PULLS IN LEFT ARM. RSB: MOD. LSB: STEFANIA. R Rot: MOD. L Rot: MOD. ROM DINA UE'S: WFL. STRENGTH: DINA UE'S GROSSLY 5/5 WITH MMT'ING EXCEPT SHLDS 4/5. RIGHT HAND DOMINANT WITH A RIGHT DENTAL LABORATORY SUPERVISOR STRENGTH OF 25 LBS AND L 35 LBS. SENSATION: DINA UE LIGHT TOUCH SENSATION IS GROSSLY INTACT AND SYMMETRICAL. Plan Plan: CONTINUE PT 2X'S A WEEK X 3 WEEKS FOR: MANUAL CERVICAL TX, STM, POSTURE CORRECTION/STRENGTHENING, INSTRUCTION IN APPROPRIATE BODY MECHANICS AND ACTIVITY MODIFICATIONS. DINA UE ROM, STRETCHING AND STRENGTHENING. HEP INSTRUCTION. Balance/Gait/Functional tests - Balance/Special Test Scores Oswestry Neck Score: 10 Goals Goal 1:: Pt to report 1-2/10 neck pain at rest. Goal Time Frame: 2-4 Weeks Goal Progress: Progressing Goal 2:: Pt to demonstrate full cervical AROM in all planes. Goal Time Frame: 4-6 Weeks Goal Progress: Progressing Goal 3:: Pt to report increased ability to participate in ADLs Goal Time Frame: 2-4 Weeks Goal Progress: Progressing Goal 4:: Pt to report ability to return to work duties. Goal Time Frame: 4-6 Weeks Goal Progress: Goal Met Goal 5:: Pt to decrease disability on NICOLASA to <20%. Goal Time Frame: 4-6 Weeks Goal Progress: Progressing Anticipated Interventions Patient/Client Instruction: Educate patient on: Condition, Plan of Care Therapeutic Exercise to Include: Postural training, Flexibilty training, Passive ROM, Active ROM For the Purpose of:: To decrease pain, To increase ROM Manual Therapy Techniques to Include: Soft tissue mobilization For the Purpose of:: To increase ROM Please do not hesitate to contact me at [phone] by phone or if you have questions or concerns regarding this new plan of care! Sincerely, Bonnie Rodriguez, PT, Cert MDT
--- NOTE | 2022-04-29 17:49 | HP.PTREVAL_ITS ---
Dr. Deangelo Tyson MD, It has been my pleasure to treat MILENA JEAN BAPTISTE over the last 16 visits for cervicalgia. Please see the progress note below for an update on the physical therapy plan of care! Subjective: PATIENT REPORTS DECREASED PAIN FROM 9/10 PAIN UPON ARRIVAL TODAY TO 8/10 PAIN AFTER TREATMENT. PATIENT REPORTS SHE WAS NOT ACTUALLY AT 10/10 BECAUSE SHE DOES NOT FEEL SHE NEEDS TO GO TO THE ED. PATIENT REPORTS SHE FELT GREAT AFTER THE THE FIRST TRACTION TREATMENT. SHE REPORTS SHE FELT THE BEST SHE HAS FELT IN A LONG TIME. BUT A DAY OR TWO AFTER THE LAST TRACTION TREATMENT IT GOT REALLY PAINFUL AND SHE HASN'T BEEN ABLE TO SETTLE IT BACK DOWN. PATIENT REPORTS HER HEADACHES ARE INCREASING AGAIN. HEADACHE 4/10 TODAY. PATIENT REPORTS SHE IS STILL A LOT BETTER NOW THAN BEFORE SHE STARTED PT BUT NOT GOOD SHE WAS BEFORE LAST TRACTION SESSION. 65% BETTER THAN ORIGINALLY. PATIENT DENIES DINA UE PAIN, NUMBNESS AND TINGLING OTHER THAN SORENESS IN HER SHLDS RIGHT NOW. ALSO HAS JAW SORENESS. Objective/Function: OVER-ALL PATIENTS MEASUREMENTS ARE THE SAME OR SLIGHTLY BETTER (R NECK ROTATION) COMPARED TO LAST RE-CHECK BUT PATIENT HAS BEEN REPORTING INCREASED SX'S FOR ABOUT 10 DAYS NOW. THIS PT RECOMMENDED PHYSICIAN RE-CHECK AND PATIENT AGREEABLE. UPON EXAM TODAY: PALPATION: PATIENT HAS TENDERNESS WITH LIGHT PALPATION OF THE [id number] REGIONS. Cervical Mvmt Loss: Flex: MIN - PULLS IN NECK. Pro: NIL. Ext: MOD. Ret: MOD - TENSION IS FELT IN THE NECK BUT NO UE SX'S. RSB: MOD. LSB: STEFANIA. R Rot: MIN. L Rot: MOD. ROM DINA UE'S: WFL. STRENGTH: DINA UE'S GROSSLY 5/5 WITH MMT'ING EXCEPT SHLDS 4/5. RIGHT HAND DOMINANT WITH A RIGHT PARK WORKER SUPERVISOR STRENGTH OF 25 LBS AND L 35 LBS. SENSATION: DINA UE LIGHT TOUCH SENSATION IS GROSSLY INTACT AND SYMMETRICAL. REDNESS SEEN ON ARMS THAT PATIENT REPORTS IS HER NORMAL ECZEMA. PATIENT DENIED DINA UE SX'S DURING AND AFTER SESSION TODAY. Plan Plan: RESUME PT IF OK'D BY DR. TYSON. MANUAL CERVICAL TX, STM, POSTURE CORRECTION/STRENGTHENING, INSTRUCTION IN APPROPRIATE BODY MECHANICS AND ACTIVITY MODIFICATIONS. DINA UE ROM, STRETCHING AND STRENGTHENING. HEP INSTRUCTION. Balance/Gait/Functional tests - Balance/Special Test Scores Oswestry Neck Score: 10 Goals Goal 1:: Pt to report 1-2/10 neck pain at rest. Goal Time Frame: 2-4 Weeks Goal Progress: Not Progressing Goal 2:: Pt to demonstrate full cervical AROM in all planes. Goal Time Frame: 4-6 Weeks Goal Progress: Not Progressing Goal 3:: Pt to report increased ability to participate in ADLs Goal Time Frame: 2-4 Weeks Goal Progress: Not Progressing Goal 4:: Pt to report ability to return to work duties. Goal Time Frame: 4-6 Weeks Goal Progress: Goal Met Goal 5:: Pt to decrease disability on NICOLASA to <20%. Goal Time Frame: 4-6 Weeks Goal Progress: Progressing Anticipated Interventions Patient/Client Instruction: Educate patient on: Condition, Plan of Care Therapeutic Exercise to Include: Postural training, Flexibilty training, Passive ROM, Active ROM For the Purpose of:: To decrease pain, To increase ROM Manual Therapy Techniques to Include: Soft tissue mobilization For the Purpose of:: To increase ROM Please do not hesitate to contact me at [phone] by phone or if you have questions or concerns regarding this new plan of care! Sincerely, Bonnie Rodriguez, PT, Cert MDT
--- NOTE | 2022-09-03 12:41 | HP.PT.NRP ---
MILENA JEAN BAPTISTE was seen in my office for initial evaluation on 03/08/22. The following Plan of Care was established for this patient: Initial Frequency: 2-3x /Week Initial Duration: 4 Weeks Patient/Client Instruction: Educate patient on: Condition, Plan of Care Therapeutic Exercise to Include: Postural training, Flexibilty training, Passive ROM, Active ROM For the Purpose of:: To decrease pain, To increase ROM Manual Therapy Techniques to Include: Soft tissue mobilization For the Purpose of:: To increase ROM This patient was last seen in our office 06/10/22. Pertinent comments regarding their Physical therapy will appear below: This patient has not returned to Physical Therapy and is appropriate to return to MD for further follow-up as needed. At this point I will be discontinuing this patient from physical therapy. I would be happy to see this patient again in the future if found appropriate by the physician. Thank you! Bonnie Rodriguez, PT, Cert MDT Balance/Gait/Functional tests - Balance/Special Test Scores Oswestry Neck Score: 10
== END 2022-06-10 19:00 | disposition home or self-care (01) ==
LOC: PT 15:30
PROVIDERS: PCP Family Medicine; Referring Provider Family Medicine; Visit Provider Family Medicine
DX: M54.2 Cervicalgia (principal)
CPT/HCPCS: 97012; 97110; 97140; 97161; 97164; 97530

== ENCOUNTER → 2022-08-09 | Outpatient (CLI) | payer BC, SELFPAY ==
--- NOTE | 2022-08-09 15:38 | CT_ITS ---
EXAM: CT NECK WITH INTRAVENOUS CONTRAST CLINICAL INDICATION: SWELLING neck pain with TECHNIQUE: Helically acquired images were obtained of the neck with intravenous contrast. This CT exam was performed using one or more of the following dose reduction techniques: automated exposure control, adjustment of the mA and/or kV according to patient size, and/or use of iterative reconstruction technique. This report was created using [employer] report [employer] technology. CONTRAST: IV 100mL [id number]-300 RADIATION DOSE: CTDIvol = 13.71 mGy, DLP = 356.20 mGy-cm COMPARISON: None. FINDINGS: NASOPHARYNX: Unremarkable. SUPRAHYOID NECK: Unremarkable. Oropharynx, oral cavity, parapharyngeal space and retropharyngeal space are unremarkable. INFRAHYOID NECK: Unremarkable. The larynx, hypopharynx and supraglottis are unremarkable. SUBMANDIBULAR/PAROTID GLANDS: Unremarkable. Glands are normal in size. THYROID: Unremarkable. No enlarged or calcified nodules. BONES/JOINTS: There are degenerative findings of the cervical spine. No acute fracture. SOFT TISSUES: Unremarkable. VASCULATURE: No acute findings. LYMPH NODES: Unremarkable. No lymphadenopathy. LUNG APICES: There are scattered blebs and bullae. This can be seen in pulmonary emphysema. CT/Soft Tissue Neck WITH Contrast IMPRESSION: There are degenerative findings of the cervical spine. Electronically Signed: Corey Camacho MD at 20:25 EDT Reading Location ID and State: [facility] / [place] , Service support ,
[2022-08-09 16:06] LABS: CREATININE FINGERSTICK < 0.9 mg/dL (0.55-1.02); EGFR FINGERSTICK > 60.0000 mL/min (>60)
== END | disposition home or self-care (01) ==
PROVIDERS: PCP Family Medicine; Referring Provider Family Medicine; Visit Provider Family Medicine
DX: R22.1 Localized swelling, mass and lump, neck (principal)
CPT/HCPCS: 70491; Q9967

== ENCOUNTER → 2022-08-28 | Outpatient (CLI) | payer BC, SELFPAY ==
--- NOTE | 2022-08-28 15:25 | MRI_ITS ---
STUDY: MRI CERVICAL SPINE WITHOUT CONTRAST REASON FOR EXAM: Female, 62 years old. DDD, cervical pain into shoulders TECHNIQUE: Standardized fat and water weighted pulse sequences were obtained in the sagittal and axial planes. COMPARISON: None FINDINGS: Normal foramen magnum and brainstem-cervical cord junction. Normal craniovertebral junction. Normal anterior atlantoaxial articulation. Normal odontoid process. Decreased cervical lordosis. Normal vertebral bodies and posterior osseous elements. C2-3: Normal endplates. Normal disc height, signal and morphology. Normal central canal and intervertebral neural foramina. C3-4: Grade 1 spondylolisthesis Normal endplates. Normal disc height, signal and mild bulging disc osteophyte complex with moderate sized left posterolateral/foraminal disc/osteophyte protrusion. Normal central canal. Severe left neuroforaminal stenosis. C4-5: Grade 1 spondylolisthesis Normal endplates. Normal disc height, signal and mild bulging disc osteophyte complex small right foraminal disc/osteophyte protrusion. Normal central canal. Severe right neuroforaminal stenosis C5-6: Narrowed disc space and minor bulging disc/osteophyte complex with left superolateral/foraminal disc protrusion.. Mild narrowing of the central canal. Moderate right neuroforaminal stenosis and severe narrowing on the left C6-7: Narrowed disc space and minimal bulging disc osteophyte complex left foraminal disc/osteophyte protrusion. Normal central canal. Moderate right neuroforaminal stenosis and severe narrowing on the left.. There are small perineural cysts in the neuroforamina bilaterally C7-T1:. Normal endplates. Normal disc height, signal and small left foraminal disc/osteophyte protrusion.. Normal central canal. Severe left neural foraminal stenosis. Normal cervical cord. Normal visualized soft tissue structures. MRI/Spine Cervical (Routine) IMPRESSION: No evidence for acute fracture or other significant bony pathology.. Moderate spondylosis and multilevel spinal stenosis secondary to disc disease and bony hypertrophy. Findings as above Electronically Signed: Jaswant Drew MD at 17:48 EDT ,
== END | disposition home or self-care (01) ==
PROVIDERS: PCP Family Medicine; Visit Provider Family Medicine
DX: M50.30 Other cervical disc degeneration, unspecified cervical region (principal); M47.812 Spondylosis without myelopathy or radiculopathy, cervical region; M48.02 Spinal stenosis, cervical region
CPT/HCPCS: 72141

== ENCOUNTER → 2022-12-09 | Outpatient (CLI) | payer BC, SELFPAY ==
[2022-12-09 10:19] LABS: Vitamin D,25 Hydroxy 30.2 ng/mL
[2022-12-09 10:47] LABS: ALB/GLOB Ratio 1.1 RATIO (0.9-2.4); AST(SGOT) 22 U/L (15-37); Alanine Aminotransfer ALT/SGPT 28 U/L (13-56); Albumin, Serum 4.1 g/dL (3.2-5.0); Alkaline Phosphatase 80 U/L (45-117); Anion Gap 7 (5-15); BUN 15 mg/dL (7-18); BUN/Creat Ratio 19.9 RATIO (10-20); Calcium,Total 8.9 mg/dL (8.5-10.1); Chloride 107 mmol/L (98-107); Cholesterol 171 mg/dL (200); Creatinine, Serum 0.75 mg/dL (0.55-1.02); EST Glomerular Filtration Rate 83 mL/min (>60); Est Glom Filt Rate - Afr Amer 101 mL/min (>60); Globulin 3.6 g/dL (2.2-4.2); Glucose 108 mg/dL (74-106); High Density Lipoprotein 62 mg/dL; Protein, Total 7.7 g/dL (6.4-8.2); Sodium Level 139 mmol/L (136-145); Thyroid Stim Hormone (TSH) 1.35 uIU/mL (0.358-3.74); Triglycerides 88 mg/dL; Very Low Density Lipoprotein 18 mg/dL (5-40)
== END | disposition home or self-care (01) ==
PROVIDERS: PCP Family Medicine; Referring Provider Family Medicine; Visit Provider Family Medicine
DX: Z00.00 Encounter for general adult medical examination without abnormal findings (principal)
CPT/HCPCS: 36415; 80053; 80061; 82306; 84443

== ENCOUNTER → 2022-12-26 | Outpatient (CLI) | payer BC, SELFPAY ==
--- NOTE | 2022-12-26 17:00 | RAD_ITS ---
STUDY: X-RAY - RIGHT HAND REASON FOR EXAM: Female, 62 years old. Arthrosis. TECHNIQUE: 3 view(s) of the hand. COMPARISON: None. FINDINGS: Osteopenia. Mild arthrosis of the radiocarpal articulation. Minimal negative ulnar variance. Mild arthrosis of the distal radioulnar joint. Moderate arthrosis of the radiocarpal row of the wrist. Cystic changes in the lunate. Moderate to marked arthrosis of the first CMC joint. Moderate arthrosis of the MCP and IP joints. Central erosive changes of the DIP joints second through fifth digits. Normal soft tissues. RAD/Hand Min 3 Views IMPRESSION: Osteopenia with erosive osteoarthrosis as described. Minimal negative ulnar variance. No acute abnormality, chondrocalcinosis or erosive changes. Electronically Signed: Fred Coughlin, at 9:25 EST ,
--- NOTE | 2022-12-26 17:06 | RAD_ITS ---
STUDY: X-RAY - LEFT HAND REASON FOR EXAM: Female, 62 years old. Osteoarthrosis. Pain. TECHNIQUE: 3 view(s) of the hand. COMPARISON: None. FINDINGS: Osteopenia. Mild arthrosis of the radiocarpal articulation. Mild arthrosis of the distal radioulnar joint. Mild arthrosis of the radiocarpal row of the wrist. Moderate arthrosis of the first CMC joint. Moderate arthrosis of the MCP and IP joints most marked at the DIP joint of the third digit. Normal soft tissues. RAD/Hand Min 3 Views IMPRESSION: Osteopenia with osteoarthritic changes, most marked at the first CMC joint and the DIP joint of third digit. No acute abnormality, chondrocalcinosis or erosive changes. Electronically Signed: Fred Coughlin, at 9:24 EST ,
== END | disposition home or self-care (01) ==
PROVIDERS: PCP Family Medicine; Referring Provider Family Medicine; Visit Provider Family Medicine
DX: M19.041 Primary osteoarthritis, right hand (principal); M19.042 Primary osteoarthritis, left hand
CPT/HCPCS: 73130

== ENCOUNTER → 2023-01-01 | Outpatient (CLI) | payer BC, SELFPAY ==
[2023-01-01 18:19] LABS: Uric Acid 3.8 mg/dL (2.6-6.0)
== END | disposition home or self-care (01) ==
LOC: MFPLAB 15:38
PROVIDERS: PCP Family Medicine; Visit Provider Family Medicine
DX: M19.049 Primary osteoarthritis, unspecified hand (principal)
CPT/HCPCS: 36415; 84550

== ENCOUNTER → 2023-01-09 | Outpatient (CLI) | payer BC, SELFPAY ==
--- NOTE | 2023-01-09 15:32 | BI_ITS ---
MAMMOGRAPHY - BILATERAL SCREENING REASON FOR EXAM: Female, 62 years old. Routine annual screening examination. PERTINENT HISTORY: Sister with breast cancer. TECHNIQUE: Digital bilateral breast evie (3D mammographic acquisition) in the CC and MLO projections. 2-D mediolateral oblique (MLO) and craniocaudad (CC) views of both breasts were obtained. CAD: Full Field Digital Mammography with Computer Added Detection was performed. COMPARISON: Comparison is made with prior study dated 11/12/2018. FINDINGS: Breast Composition: The breasts are extremely dense, which lowers the sensitivity of mammography. There are no dominant masses or suspicious calcifications. No other significant abnormalities are identified. There has been no significant change since the prior study. BI/SCRN MAMM (CAD)W/EVIE BILAT IMPRESSION: Stable bilateral screening mammogram. Yearly follow-up mammogram recommended. (A) ASSESSMENT CATEGORY: BIRADS Category 1: Negative. A letter regarding these results will be sent to the patient by the facility within 30 days. Approximately 10% of breast cancers are not detected by mammography. A normal mammogram should not delay biopsy of a clinically suspicious abnormality. [id number] Electronically Signed: Teo Gamboa MD at 17:13 EST ,
--- NOTE | 2023-01-09 15:42 | BD_ITS ---
STUDY: DUAL ENERGY X-RAY ABSORPTIOMETRY / DXA REASON FOR EXAM: Female, 62 years old. [id number] TECHNIQUE: Bone Mineral Density (BMD) measurements of lumbar spine and bilateral hips were obtained. COMPARISON: Comparison is made with prior study dated 10/29/2018. FINDINGS: Lumbar Spine (L1-L4): g/cm2 (1.009) / T-score (-0.4) / Z-score (1.1) Findings are suggestive of normal bone density with a low fracture risk. Left Femur Total: g/cm2 (0.817) / T-score (-1.0) / Z-score (-0.1) Left Femoral Neck: g/cm2 (0.794) / T-score (-0.5) / Z-score (0.8) Right Femur Total: g/cm2 (0.835) / T-score (-0.9) / Z-score (0.1) Right Femoral Neck: g/cm2 (0.786) / T-score (-0.6) / Z-score (0.7) The T-Scores on the most recent prior examination were: Lumbar Spine (L1-L4): There has been improvement of bone density since the previous examination. Left Femur Total: which represents a worsening of 6.4%. Right Femur Total: which represents a worsening of 4.2%. BD/Dexa Bone Density Study IMPRESSION: The patient is considered normal as outlined below according to World Ryan Organization (WHO) criteria with a low fracture risk. There has been worsening of bone density since the previous examination. Reference Information: The T-score is the number of standard deviations above or below the standard which is normal for young adults at their peak bone mineral density. The World Health Organization (WHO) interprets the T-scores as follows: Above -1 Normal bone density Between -1 and -2.5 Osteopenia Equal to / or below -2.5 Osteoporosis As a practical clinical guideline, osteopenia may be graded as follows: Mild -1 through -1.5 Moderate -1.6 through -2.0 Severe -2.1 through -2.4 The Z-score is the number of standard deviations above or below age-matched controls. A Z-score of less than -1.5 would be considered abnormal. References: 1. NIH Osteoporosis and Related Bone Diseases www osteo.org 2. International Society for Clinical Densitometry www iscd.org 3. National Osteoporosis Foundation www nof.org Electronically Signed: Teo Gamboa MD at 17:21 EST ,
== END | disposition home or self-care (01) ==
LOC: OPBD 15:29
PROVIDERS: PCP Family Medicine; Visit Provider Family Medicine
DX: Z13.820 Encounter for screening for osteoporosis (principal); Z78.0 Asymptomatic menopausal state; Z12.31 Encounter for screening mammogram for malignant neoplasm of breast; Z80.3 Family history of malignant neoplasm of breast
CPT/HCPCS: 77063; 77067; 77080

== ENCOUNTER → 2023-01-10 | Outpatient (CLI) | payer BC, SELFPAY ==
--- NOTE | 2023-01-10 15:32 | CT_ITS ---
STUDY: LOW DOSE CT LUNG CANCER SCREENING REASON FOR EXAM: Female, 62 years old. COPD RADIATION DOSAGE (If Supplied By Facility): CTDIvol = ( 2.01 ) mGy, DLP = ( 67.71 ) mGycm TECHNIQUE: No contrast was administered. Low dose technique was utilized (average mAS-38 and kVp 120). 1.25 mm axial source images with a slice interval of 1.25-mm were reconstructed in lung windows. 2.5 mm axial source images with a slice interval of 2.5-mm were reconstructed in lung windows. 5.0 mm axial source images with a slice interval of 5.0-mm were reconstructed in soft tissue windows. COMPARISON: 11/14/2021 NODULES: No pulmonary nodules. Emphysema: Moderate central lobular emphysema. Endobronchial lesion: Central, cylindrical bronchiectasis. No endobronchial nodules. Aorta: Atherosclerosis of the thoracic aorta. CORONARY ARTERIES: Coronary artery calcification is seen. Heart: Normal size Pulmonary artery: Unremarkable for unopacified technique Mediastinal nodes: No sylvie mass. Other chest and abdominal findings: None CT/Low Dose CT Lung Screening IMPRESSION: Lung-RADS category 1 - Continue annual screening with LDCT in 12 months. IMPORTANT NOTES FOR USE: ACR Lung-RADS Version 1.1 Assessment Categories Release Date: 2018 Category: Coded 0-4 bases on nodule(s) with highest degree of suspicion. Negative screen is defined as categories 1 and 2; a positive screen is defined as categories 3 and 4. Category 3 and 4A nodules that are unchanged on interval CT should be coded as category 2, and individuals returned to screening in 12 months. Category 4X: Category 3 or 4 nodules with additional imaging findings that increase the suspicion of lung cancer, such as spiculation, GGN that doubles in size in 1 year, enlarged lymph notes, etc. Category Modifiers: S (significant finding unrelated to lung cancer) Electronically Signed: Carlito May (Brooks), at 19:36 EST Reading Location ID and State: [facility] / [place] , Service support ,
== END | disposition home or self-care (01) ==
LOC: CT 15:30
PROVIDERS: PCP Family Medicine; Referring Provider Family Medicine; Visit Provider Family Medicine
DX: Z12.2 Encounter for screening for malignant neoplasm of respiratory organs (principal); J44.9 Chronic obstructive pulmonary disease, unspecified; Z87.891 Personal history of nicotine dependence
CPT/HCPCS: 71271

== ENCOUNTER → 2024-01-14 | Outpatient (CLI) | payer BC, SELFPAY ==
--- OUTSIDE RECORDS SUMMARY | 2024-01-14 10:14 | XMS RPT_ITS | CCD ---
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 Hand Name Role Phone Aj Villanueva MD Primary Care Provider Allergies Allergy Classification Reported Allergen(s) Allergy Type Date of Onset Reaction(s) Facility (1 source) Bee Sting Propensity to adverse reactions [facility] Work Phone: (1 source) Insect Venom Drug Intolerance [facility] Work Phone: Medications Completed/Discontinued Medications Medication Drug Class(es) Dates Sig (Normalized) Sig (Original) atorvastatin 20 mg oral tablet (1 source) HMG-CoA Reductase Inhibitor Start: 02-13-2022 take 1 tablet by mouth once daily at bedtime atorvastatin (LIPITOR) 20 mg tablet TAKE 1 TABLET BY MOUTH EVERYDAY AT BEDTIME 0 02/13/2022 Active Problems Problem Classification Problem Date Documented Da te Episodic/Chronic Headache; including migraine (1 source) Headache; Translations: [Headache, unspecified headache type] Episodic Spondylosis; intervertebral disc disorders; other back problems (1 source) Stiff neck; Translations: [Torticollis] Episodic Results Test Name Value Interpretation Reference Range Facil ity Vital Signs Date Time Vital Sign Value Performing Clinician Faci lity 03-03-2022 13:05-0400 Body temperature 97.5 [degF] Brad Quinn MD Work Phone: [facility] 03-03-2022 13:05-0400 Body weight 68.67 kg Brad Quinn MD Work Phone: [facility] 03-03-2022 13:05-0400 Diastolic blood pressure 80 mm[Hg] Brad Quinn MD Work Phone: [facility] 03-03-2022 13:05-0400 Heart rate 93 /min Brad Quinn MD Work Phone: [facility] 03-03-2022 13:05-0400 Respiratory rate 21 /min Brad Quinn MD Work Phone: [facility] 03-03-2022 13:05-0400 SaO2% (BldA) [Mass fraction] 97 % Brad Quinn MD Work Phone: [facility] 03-03-2022 13:05-0400 Systolic blood pressure 108 mm[Hg] Brad Quinn MD Work Phone: [facility] Encounters Encounter Date Encounter Type Care Provider Facility Start: 03-03-2022 End: 03-03-2022 Patient encounter procedure Brad Quinn MD Work Phone: [facility] Plan of Treatment Date Care Activity Detail Author Start: 07-25-2022 Influenza vaccination INFLUENZA (Sea son Ended) [facility] Start: 2012 SHINGRIX VACCINE (1 of 2) SHINGRIX V ACCINE (1 of 2) [facility] Start: 05-06-2010 PAP TESTING PAP TESTING [facility] Start: 2007 COLOGUARD (FIT-DNA) COLOGUARD (FIT-D NA) [facility] Start: 2007 Colonoscopy COLONOSCOPY [facility] Start: 2007 COLORECTAL CANCER SCREENING COLORECTAL CANCER SCREENING [facility] Start: [address] COLONOGRAPHY [facility] Start: 2007 DIABETES SCREEN DIABETES SCREEN [facility] Start: 2007 FECAL OCCULT BLOOD FECAL OCCULT BLOO D [facility] Start: 2007 LIPID SCREEN LIPID SCREEN [facility] Start: 2007 SIGMOIDOSCOPY SIGMOIDOSCOPY [facility] Start: 2002 Mammography MAMMOGRAM [facility] Start: 1992 HPV TESTING HPV TESTING [facility] Start: 1981 Urine microalbumin profile DTAP,TDAP ,TD (1 - Tdap) [facility] Start: 1980 HEPATITIS C SCREENING HEPATITIS C SC ATIF [facility] Start: 1980 HIV SCREENING HIV SCREENING [facility] Start: 1974 Adult depression scr eening assessment DEPRESSION SCREENING [facility] Payers Date Payer Category Payer Unknown [employer] PPO OOS [id number] 2012-Present [phone] [address] [place] [address] PPO [id number] Social History Date Type Detail Facility Start: 01-30-2018 End: 08-03-2017 Tobacco smoking status NHIS Smokes tobacco daily [facility] End: 08-03-2017 History of tobacco use Cigarette Smoker [facility] Start: 01-30-2018 End: 03-03-2022 Cigarettes smoked current (pack per day) - Reported 1 [facility] Start: 01-30-2018 Tobacco use and exposure Smoke less tobacco non-user [facility] Start: 03-03-2022 Alcohol intake Current drinke r of alcohol (finding) [facility] Start: 1960 Sex Assigned At Not on file [facility] Start: 02-21-2022 End: 03-03-2022 Exposure to SARS-CoV-2 (event) Not sure [facility] Progress note 03-03-2022 Note Date & Type Note Facility 03-03-2022 Note HNO ID: [id number] Author: Brad Quinn MD Service: ? Author Type: Physician Type: Progress Notes Filed: 03/03/2022 1:44 PM Note Text: Patient presents with: Diarrhea: vomitting, stiff neck x 2 days pain in right lower abdomen x 5 months HPI: Feeling sick for 8 days. Started with migraine. Vomiting and diarrhea started 5 days ago. Positive symptoms: Fever (<100), chills, bad Headache, Nausea, resolved Vomiting, Diarrhea, right lower abdominal pain, stiff neck for 3 days, blood in stool 8 months ago, Negative symptoms: rhinorrhea, Cough, Shortness of breath, numbness, focal weakness OTC: Tylenol Had 3rd/booster dose of Pfizer COVID-19 vaccine in October. Home COVID negative [address] scans in October. PAST MEDICAL HISTORY Diagnosis Date - Allergic rhinitis, cause unspecified - Chronic depressive personality disorder PTSD - Hyperlipidemia - Melanoma (HCC) 2004 PAST SURGICAL HISTORY Procedure Laterality Date - COLSC FLX W/RMVL OF TUMOR POLYP LESION SNARE TQ Polpectomy, lg intestine - PAST SURGICAL HISTORY OF 05/28 removal of melanoma lt. groin/cis - PAST SURGICAL HISTORY OF leep - TONSILLECTOMY PRIMARY/SECONDARY Tonsillectomy MEDICATIONS: Current Outpatient Medications Medication Sig - atorvastatin (LIPITOR) 20 mg tablet TAKE 1 TABLET BY MOUTH EVERYDAY AT BEDTIME No current facility-administered medications for this visit. ALLERGIES: ALLERGIES Allergen Reactions - Bee Sting Swelling - Insect Venom Swelling VITALS: BP 108/80 Pulse 93 Temp 36.4 ?C (97.5 ?F) Resp 21 Wt 68.7 kg (151 lb 6.4 oz) LMP 11/18/2005 SpO2 97% PHYSICAL EXAM: GEN: mildly ill appearing, alert HEENT: PERRL, EOMI, conjunctiva clear Ears: canals clear. TMs without erythema, bulge, or effusion Sinuses: non-tender frontal sinus, non-tender maxillary sinuses Throat: moist mucous membranes, no erythema, no exudate Neck: pain with neck flexion, no thyromegaly, no lymphadenopathy HEART: regular rate and rhythm, no murmurs LUNGS: clear to auscultation, no wheezes or crackles, no increased WOB ABD: Soft, non-distended, non-tender, no masses NEURO: Alert and oriented to person, place, and time. CN II-XII intact. DTR 2+/4. Normal strength. Normal gait. No tremor. ASSESSMENT/PLAN: 1. Headache, unspecified headache type - ICD9: 784.0, ICD10: R51.9 (primary diagnosis) 2. Neck stiffness - ICD9: 723.5, ICD10: M43.6 Acute illness with persistent bad headache that is not typical for her in the past. Referred to the ER for further evaluation. Report sent to [facility] by [employer]. Brad Quinn MD [facility] History of Present illness Narrative 03-03-2022 Brad Quinn MD - 03/03/2022 1:17 PM EDT Note Date & Type Note Facility 03-03-2022 History of Presen t illness Narrative Patient presents with: Diarrhea: vomitting, stiff neck x 2 days pain in right lower abdomen x 5 months HPI: Feeling sick for 8 days. Started with migraine. Vomiting and diarrhea started 5 days ago. Positive symptoms: Fever (<100), chills, bad Headache, Nausea, resolved Vomiting, Diarrhea, right lower abdominal pain, stiff neck for 3 days, blood in stool 8 months ago, Negative symptoms: rhinorrhea, Cough, Shortness of breath, numbness, focal weakness OTC: Tylenol Had 3rd/booster dose of QR Wild COVID-19 vaccine in October. Home COVID negative [address] scans in October. PAST MEDICAL HISTORY Diagnosis Date Allergic rhinitis, cause unspecified Chronic depressive personality disorder PTSD Hyperlipidemia Melanoma (HCC) 2004 PAST SURGICAL HISTORY Procedure Laterality Date COLSC FLX W/RMVL OF TUMOR POLYP LESION SNARE TQ Polpectomy, lg intestine PAST SURGICAL HISTORY OF 05/28 removal of melanoma lt. groin/cis PAST SURGICAL HISTORY OF leep TONSILLECTOMY PRIMARY/SECONDARY <AGE 14 Tonsillectomy MEDICATIONS: Current Outpatient Medications Medication Sig atorvastatin (LIPITOR) 20 mg tablet TAKE 1 TABLET BY MOUTH EVERYDAY AT BEDTIME No current facility-administered medications for this visit. ALLERGIES: ALLERGIES Allergen Reactions Bee Sting Swelling Insect Venom Swelling VITALS: BP 108/80 Pulse 93 Temp 36.4 C (97.5 F) Resp 21 Wt 68.7 kg (151 lb 6.4 oz) LMP 11/18/2005 SpO2 97% PHYSICAL EXAM: GEN: mildly ill appearing, alert HEENT: PERRL, EOMI, conjunctiva clear Ears: canals clear. TMs without erythema, bulge, or effusion Sinuses: non-tender frontal sinus, non-tender maxillary sinuses Throat: moist mucous membranes, no erythema, no exudate Neck: pain with neck flexion, no thyromegaly, no lymphadenopathy HEART: regular rate and rhythm, no murmurs LUNGS: clear to auscultation, no wheezes or crackles, no increased WOB ABD: Soft, non-distended, non-tender, no masses NEURO: Alert and oriented to person, place, and time. CN II-XII intact. DTR 2+/4. Normal strength. Normal gait. No tremor. ASSESSMENT/PLAN: 1. Headache, unspecified headache type - ICD9: 784.0, ICD10: R51.9 (primary diagnosis) 2. Neck stiffness - ICD9: 723.5, ICD10: M43.6 Acute illness with persistent bad headache that is not typical for her in the past. Referred to the ER for further evaluation. Report sent to [facility] by [employer]. Brad Quinn MD documented in this encounter [facility] Evaluation note Note Date & Type Note Facility documented in this encounter [facility] Summary Purpose Family History No Family History Records Found Advance Directives No Advanced Directives Records Found Additional Source Comments Source Comments (unrecognize d section and content) In the event this informatio n is protected by the Federal Confidentiality of Alcohol and Drug Abuse Patient Records regulations: The Federal rules restrict any use of the information to criminally investigate or prosecute any alcohol or drug abuse patient.[facility] Reason for Visit (unrecogniz ed section and content) Care Teams (unrecognized sec tion and content) INFORMATION SOURCE (unrecogn ized section and content) FOR RECORDS PERTAINING TO PATIENTS WHO ARE OR HAVE BEEN ENROLLED IN A CHEMICAL DEPENDENCY/SUBSTANCEABUSE PROGRAM, SOME INFORMATION MAY BE OMITTED. This clinical summary was aggregated from multiple sources. Caution should be exercised in using it in the provision of clinical care. This summary normalizes information from multiple sources, and as a consequence, information in this document may materially change the coding, format and clinical context of patient data. In addition, data may be omitted in some cases. CLINICAL DECISIONS SHOULD BE BASED ON THE PRIMARY CLINICAL RECORDS. [employer] provides no warranty or guarantee of the accuracy or completeness of information in this document.
[2024-01-14 13:23] LABS: ALB/GLOB Ratio 1.2 RATIO (0.9-2.4); AST(SGOT) 23 U/L (15-37); Alanine Aminotransfer ALT/SGPT 28 U/L (13-56); Albumin, Serum 4.2 g/dL (3.2-5.0); Alkaline Phosphatase 72 U/L (45-117); Anion Gap 7 (5-15); BUN 18 mg/dL (7-18); BUN/Creat Ratio 23.3 RATIO (10-20); Calcium,Total 9.4 mg/dL (8.5-10.1); Chloride 107 mmol/L (98-107); Creatinine, Serum 0.77 mg/dL (0.55-1.02); EST Glomerular Filtration Rate 81 mL/min (>60); Est Glom Filt Rate - Afr Amer 97 mL/min (>60); Globulin 3.5 g/dL (2.2-4.2); Glucose 79 mg/dL (74-106); Potassium 3.6 mmol/L (3.5-5.1); Protein, Total 7.7 g/dL (6.4-8.2); Sodium Level 139 mmol/L (136-145)
== END | disposition home or self-care (01) ==
LOC: MFPLAB 09:35
PROVIDERS: PCP Family Medicine; Visit Provider Family Medicine
DX: E78.5 Hyperlipidemia, unspecified (principal); E55.9 Vitamin D deficiency, unspecified
CPT/HCPCS: 36415; 80053; 82306

== ENCOUNTER → 2024-02-27 | Outpatient (CLI) | payer BC, SELFPAY ==
--- NOTE | 2024-02-27 08:03 | BI_ITS ---
MAMMOGRAPHY - BILATERAL SCREENING REASON FOR EXAM: Female, 63 years old. Routine annual screening examination. PERTINENT HISTORY: Sister with breast cancer. TECHNIQUE: Digital bilateral breast evie (3D mammographic acquisition) in the CC and MLO projections. 2-D mediolateral oblique (MLO) and craniocaudad (CC) views of both breasts were obtained. CAD: Full Field Digital Mammography with Computer Added Detection was performed. COMPARISON: Comparison is made with prior study dated January 09, 2023 and November 12, 2018. FINDINGS: Breast Composition: The breasts are extremely dense, which lowers the sensitivity of mammography. There are no dominant masses or suspicious calcifications. No other significant abnormalities are identified. There has been no significant change since the prior study. BI/SCRN MAMM (CAD)W/EVIE BILAT IMPRESSION: Stable bilateral screening mammogram. Yearly follow-up mammogram recommended. (A) ASSESSMENT CATEGORY: BIRADS Category 1: Negative. A letter regarding these results will be sent to the patient by the facility within 30 days. Approximately 10% of breast cancers are not detected by mammography. A normal mammogram should not delay biopsy of a clinically suspicious abnormality. [id number] Electronically Signed: Teo aGmboa MD at 8:58 EDT ,
--- NOTE | 2024-02-27 08:19 | CT_ITS ---
STUDY: LOW DOSE CT LUNG CANCER SCREENING REASON FOR EXAM: Female, 63 years old. SCREENING. Patient smoked 2 packs per day for 38 years. Patient with 6 years ago. RADIATION DOSAGE (If Supplied By Facility): CTDIvol = ( 1.59 ) mGy, DLP = ( 54.20 ) mGycm TECHNIQUE: No contrast was administered. Low dose technique was utilized (average mAS-38 and kVp 120). 1.25 mm axial source images with a slice interval of 1.25-mm were reconstructed in lung windows. 2.5 mm axial source images with a slice interval of 2.5-mm were reconstructed in lung windows. 5.0 mm axial source images with a slice interval of 5.0-mm were reconstructed in soft tissue windows. COMPARISON: Comparison is made with prior examination of January 10, 2023. NODULES: No suspicious nodules are seen. Emphysema: Hyperinflation. Emphysematous changes more prominent in the upper lobes. Minimal linear scarring in the anterior aspect of the right middle lobe. Endobronchial lesion: None Aorta: Atherosclerotic plaque formation of the aortic arch. CORONARY ARTERIES: Coronary artery calcification is seen. Heart: Unremarkable Pulmonary artery: Unremarkable Mediastinal nodes: Unremarkable Other chest and abdominal findings: CT/Low Dose CT Lung Screening IMPRESSION: Lung-RADS category 2 - Continue annual screening with LDCT in 12 months. IMPORTANT NOTES FOR USE: ACR Lung-RADS Version 1.1 Assessment Categories Release Date: 2018 Category: Coded 0-4 bases on nodule(s) with highest degree of suspicion. Negative screen is defined as categories 1 and 2; a positive screen is defined as categories 3 and 4. Category 3 and 4A nodules that are unchanged on interval CT should be coded as category 2, and individuals returned to screening in 12 months. Category 4X: Category 3 or 4 nodules with additional imaging findings that increase the suspicion of lung cancer, such as spiculation, GGN that doubles in size in 1 year, enlarged lymph notes, etc. Category Modifiers: S (significant finding unrelated to lung cancer) Electronically Signed: Teo Gamboa MD at 13:00 EDT ,
== END | disposition home or self-care (01) ==
PROVIDERS: PCP Family Medicine; Referring Provider Family Medicine; Visit Provider Family Medicine
DX: Z12.31 Encounter for screening mammogram for malignant neoplasm of breast (principal); Z80.3 Family history of malignant neoplasm of breast; Z12.2 Encounter for screening for malignant neoplasm of respiratory organs; Z87.891 Personal history of nicotine dependence
CPT/HCPCS: 71271; 77063; 77067

== ENCOUNTER 2024-06-17 08:27 | Outpatient (RCR) | payer BC, SELFPAY ==
--- NOTE | 2024-06-17 15:08 | HP.FCE ---
Task Lift Floor (Occasional 1-33% of Day): 40# Floor (Frequent 34-66% of Day): 20# Floor (Constant 67-100% of Day): 8# Floor PDL: Light-Medium Knee (Occasional 1-33% of Day): 40# Knee (Frequent 34-66% of Day): 20# Knee (Constant 67-100% of Day): 8# Knee PDL: Light-Medium Waist (Occasional 1-33% of Day): 40# Waist (Frequent 34-66% of Day): 20# Waist (Constant 67-100% of Day): 8# Waist PDL: Light-Medium Shoulder (Occasional 1-33% of Day): 30# Shoulder (Frequent 34-66% of Day): 15# Shoulder (Constant 67-100% of Day): 6# Shoulder PDL: Light-Medium Overhead (Occasional 1-33% of Day): 25# Overhead (Frequent 34-66% of Day): 12# Overhead (Constant 67-100% of Day): NA Overhead PDL: Light Work Activity/Posture Bending: Constant Ability (67-100% of day) Squatting: Frequent Ability (34-66% of day) Kneeling: Frequent Ability (34-66% of day) Reaching out: Constant Ability (67-100% of day) Reaching up: Constant Ability (67-100% of day) Sitting: Constant Ability (67-100% of day) Walking: Constant Ability (67-100% of day) Standing: Constant Ability (67-100% of day) Reference Reference: Duration Sedentary Sedentary Light Light Light Medium Medium Medium Heavy Very Heavy Heavy Occasional (0-33% of day) Frequent (34-66% of day) Constant (67-100% of day) 10 # Negligible Negligible 15 # 8 # Negligible 20 # 10# Negli. 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 pt states she does exercise ( stationary bike ) 4 x a week. pt states she is in good health Diagnoses Diagnoses: OA bilateral hands Symptoms Symptoms: Heberden nodes (hard or bony swellings in the distal interphalangeal joints) started to develop in last 7-8 years. Pain Pain: Pt current pain level 2/10 Work History Work History: pt states she has been employed at [employer] for 20 years. ( pt does have he [employer] license) Pt currently working third shift. 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 she was and moved to a different position and her hands felt good. But this position is not going to be available. pt states she typically works 40 hours a week. pt states she is required to do overtime. Pt states she can no longer assemble blade work and with her OA deformities at her finger joints do not fit in the places or have clearance to tack picker parts she need to for her to perform her job safely and efficiently. pt states she wants to move to different position / department to continue working [facility]: pt arrives following her work shift arrives on time and cooperative. ADLS ADLS: pt states she lives in one story home alone. Pt is is IND with all ADLs and IADLs. Physical Examination Physical Examination: Circumference of DIP Joints right IF 5.5cm left 4.6cm right MF 6.0cm left 5.5cm right RF 5.5cm left 4.5cm right LF 4.5cm left 4.0cm height of DIP MF on flat surface 2cm height of DIP RF on flat surface 1.5cm ROM: pt demo with right and left MCP and PIP ROM WNL. pt demo with Heberden nodes (hard or bony swellings in the distal interphalangeal joints) on all DIP of both right and left as well as bilateral thumb IPJ right IF DIP 50 left 55 right MF DIP 50 left 50 right RF DIP 40 left 55 Right LF DIP 50 left 50 pt demo full ability to for composite fist all other ROM is WNL Strength: Fet 2 peak force testing shoulder flexion right 19# left 16.8# biceps right 2# left 25# triceps right 21# left 23# hip flexion right 15# left 15# Quad right 18# left 19# Hamstring 20# left 20# Right Fruit Or Nut Grower Strength Average: 46.66 Right Fruit Or Nut Grower Strength Percentile: 25% Left Fruit Or Nut Grower Strength Average: 50.00 Left Fruit Or Nut Grower Strength Percentile: 47% Right Lateral Pinch Average: 15.33 Right Lateral Pinch Percentile: 90% Left Lateral Pinch Average: 12.66 Left Lateral Pinch Percentile: 75% Right Tripod Pinch Average: 10.00 Right Tripod Pinch Percentile: 25% Left Tripod Pinch Average: 10.00 Left Tripod Pinch Percentile: 50% Sensation: monofilament testing 2.83 ( interpretation Normal sensation) Fine Motor: Purdue pegboard for fine motor manipulation right 9 post placement <1% left 11 post placement 1% Bilateral pair post placement 7 <1% Assembly 11 pieces <1% based on FM skills testing pt is testing in a well below average ability Noted with this testing pts nodules on fingers would hit container and or table top. pt states this does make fingers sore but reports pain 01/31 Balance: functional reach test 11 Interpretation: A score of 6 or less indicates a significant increased risk for falls. A score between 6-10 inches indicates a moderate risk for falls. interpretation women age 41-69 yrs old 13.8 +/- 2.2 pt is at 11 pt demo good standing and ambulation balance References: 1. LUKE Boothe, Aubree NARANJO, Roberto Salinas, Nicole S. Functional reach: A new clinical measure of balance. J Gerontol. 1990; 45:M192. 2. LUKE Boothe, et al: Functional reach: Predictive validity in a sample of elderly male veterans. J Gerontol. 1992; 47:M93. 3. SHERRON Givens, et al: Functional reach and single leg stance in patients with peripheral vestibular disorders. J Vestib Res. 1996; 6:343. 4. JOSE A Mak, et al: Does functional reach improve with rehabilitation. Arch Phys Med Rehab. 1993; 74:796. Non Material Handling Activities Bending: pt demo the ability to bend forward 3/3x, 10/10x, and 10/10x rapidly on constant ability (67-100% or work day) Squatting: pt demo the ability to squat 3/3x, 10/10x and 10/10x rapidly on constant ability (67-100% or work day) Kneeling: pt demo the ability to kneel 3/3x and 10/10x and 10/10x rapidly ( pt did use external support) pt can kneel at a constant ability (67-100% or work day) Reaching out/up: pt demo the ability to reach out/up 3/3x 10/10x and 10/10x rapidly pt can reach up/out on constant ability (67-100% of work day) Walking: pts ambulates with a good ability pt can walk on constant ability ( 67-100% of work day) Standing: pt demo the ability to stand 22 min with no apparent or expressed discomfort pt can stand on constant ability (67-100% of work day) Sitting: pt demo the ability to sit for 45 min with no demo or apparent discomfort. pt can sit on constant ability Climbing Stairs: pt demo the ability to ascend and descend 10 steps with reciprocal step pattern: pt able to perform safely Dynamic Occasional Lifting Capacity Floor Lift: 25# with 15# box for maximal lift at 40# with good lifting mechanics Knee Lift: 25# with 15# box for maximal lift at 40# with good lifting mechanics Waist Lift: 25# with 15# box for maximal lift at 40# with good lifting mechanics Shoulder Lift: 15# +15# box for maximal lift at 30# with good lifting mechanics Overhead Lift: 25# maximally with good ability. Carrying: pt demo the ability to carry 30# for 40 feet with good ability. Comments: pt demo with good functional mobility and strength pts OA deformities in bilateral DIP joints pt will be unable to fit finger tips in smaller space and manipulation of small parts will compromise safety with working with smaller parts and works efficiency.
--- NOTE | 2024-06-17 15:08 | HP.OTFCE.D ---
FCE D/C Summary Discharge text: MILENA JEAN BAPTISTE was seen for a one time visit for an FCE on 06/17/24 and is discharged.
== END 2024-06-17 19:00 | disposition home or self-care (01) ==
LOC: OT 08:27
PROVIDERS: PCP Family Medicine; Referring Provider Family Medicine; Visit Provider Family Medicine
DX: M19.041 Primary osteoarthritis, right hand (principal); M19.042 Primary osteoarthritis, left hand
CPT/HCPCS: 97750

== ENCOUNTER → 2025-01-27 | Outpatient (CLI) | payer BC, SELFPAY ==
[2025-01-27 14:51] LABS: Cholesterol 178 mg/dL (<=200); High Density Lipoprotein 72 mg/dL; Low Density Lipoprotein Calc. 94 mg/dL; Triglycerides 64 mg/dL; Very Low Density Lipoprotein 13 mg/dL (5-40); cholesterol:hdl ratio screen 2.49
[2025-01-27 14:54] LABS: Erythrocyte Sedimentation Rate 8 mm/hr (0-30)
[2025-01-27 14:56] LABS: Absolute Neutrophil Count 4.6 X10^3/uL (2.0-7.7); Basophil# 0.06 X10^3/uL; Basophil% 0.7 % (0-1); Eosinophil# 0.13 X10^3/uL; Eosinophils% 1.6 % (0-5); Hematocrit 42.2 % (37-47); Lymphocyte % 31.1 % (19-41); Mean Corp Hgb Conc 33.2 g/dL (32-36); Mean Corpuscular Hgb 34.9 pg (27.0-32.0); Mean Corpuscular Volume 105.2 fL (81-99); Mean Platelet Vol. 9.2 fl (6.2-12.0); Monocyte% 8.7 % (0-10); NRBC Flagged by Analyzer 0 % (0-5); Neutrophil # 4.62 X10^3/uL (2.7-7.7); Neutrophil % 57.7 % (47-70); Platelet Count 240 K/mm3 (150-450); RBC Distribution Width CV 13.2 % (11.6-14.6); Red Blood Count 4.01 M/mm3 (4.2-5.4)
[2025-01-27 15:06] LABS: CRP < 3.00 mg/L (0.0-3.0); Rheumatoid Factor < 10.0 IU/mL (<15)
[2025-01-31 17:08] LABS: ANTINUCLEAR ANTIBODIES DIRECT Negative (Negative)
== END | disposition home or self-care (01) ==
LOC: MFPLAB 10:57
PROVIDERS: PCP Family Medicine; Referring Provider Family Medicine; Visit Provider Family Medicine
DX: M79.641 Pain in right hand (principal); E78.5 Hyperlipidemia, unspecified
CPT/HCPCS: 36415; 80061; 85025; 85652; 86038; 86140; 86431

== ENCOUNTER → 2025-03-03 | Outpatient (CLI) | payer BC, SELFPAY ==
--- NOTE | 2025-03-03 09:58 | BI_ITS ---
EXAM: SCRN MAMM (CAD)W/EVIE BILAT 03/03/2025 CLINICAL HISTORY: F, Age 64 y/o , SCREENING TECHNIQUE: Bilateral screening digital breast tomosynthesis with 2D and 3D images. Computer aided detection. COMPARISON: Prior exam(s) dated 02/27/2024, 01/09/2023. FINDINGS: TISSUE DENSITY: The breast tissue is heterogenously dense, which may obscure small masses. The mammogram demonstrates that the patient has dense breasts. Supplemental screening with whole breast ultrasound or MRI may be considered for further evaluation. Bilateral Breast Mammographic Findings: No significant masses, calcifications or other abnormalities are identified. BI/SCRN MAMM (CAD)W/EVIE BILAT IMPRESSION: Right Breast: BIRADS 1 NEGATIVE. Left Breast: BIRADS 1 NEGATIVE. OVERALL FINAL ASSESSMENT: BIRADS 1 NEGATIVE. RECOMMENDATION: Routine annual follow-up in 1 Year A letter with findings and recommendations will be mailed to the patient. Reading Location: [id number]
--- NOTE | 2025-03-03 09:58 | BD_ITS ---
PROCEDURE: DEXA BONE DENSITY STUDY 03/03/2025 REASON FOR EXAM: None provided TECHNIQUE: DXA scan of the lumbar spine and left hip, using Hologic Horizon W. REFERENCE LINKS: ISCD Adult Positions COMPARISON: Measurements obtained 01/09/2023 are retained by the imaging unit for comparison purposes, however the images themselves are not available. FINDINGS: LUMBAR SPINE: Bone mineral denisty, L1-L4: 0.994 g/cm??? T-score: -0.5 LEFT FEMORAL NECK: Bone mineral denisty: 0.759 g/cm??? T-score: -0.8 LEFT TOTAL HIP: Bone mineral denisty: 0.744 g/cm??? T-score: -1.6 RIGHT FEMORAL NECK: Bone mineral denisty: 0.889 g/cm??? T-score: 0.4 RIGHT TOTAL HIP: Bone mineral denisty: 0.840 g/cm??? T-score: -0.8 FRAX*: 10 Year Probability of Fracture: Major Osteoporotic Fracture(1): 12.0% Hip Fracture(2): 0.7% *FRAX is a trademark of the [employer]'s [employer] for Metabolic Bone Disease, World Health Organization (WHO) Collaborating [place]. 1-Major Osteoporotic Fracture: Clinical Spine, Forearm, Hip or Shoulder. 2-The 10-year probability of fracture may be lower than reported if the patient has received treatment. The National Osteoporosis Foundation recommends that medical therapy be considered in postmenopausal women and men, age 50 and older, with a: * hip or vertebral fracture * T-score less than or equal to -2.5 in the spine or hip * T-score between -1.0 and -2.5 and FRAX equal to or less than 3 percent for hip fracture or equal to or less than 20 percent for major osteoporotic fracture. World Health Organization criteria for BMD interpretation classify patients as Normal (T-score at or above -1.0), Osteopenic (T-score between -1.0 and -2.5), or Osteoporotic (T-score at or below -2.5). BD/Dexa Bone Density Study IMPRESSION: 1. Osteopenia. 2. Since 01/09/2023, there has been a decrease of 8.9% in the bone mineral dens ity of the total LEFT hip. 3. Additional description as above. Reading Location: [id number]
== END | disposition home or self-care (01) ==
LOC: OPBD 09:56
PROVIDERS: PCP Family Medicine; Referring Provider Family Medicine; Visit Provider Family Medicine
DX: Z12.31 Encounter for screening mammogram for malignant neoplasm of breast (principal); F17.200 Nicotine dependence, unspecified, uncomplicated; Z78.0 Asymptomatic menopausal state
CPT/HCPCS: 77063; 77067; 77080

== ENCOUNTER → 2025-03-04 | Outpatient (CLI) | payer BC, SELFPAY ==
--- NOTE | 2025-03-04 06:53 | CT_ITS ---
EXAM: CT Chest, Lung Cancer Screening Without Intravenous Contrast CLINICAL INDICATION: HX SMOKING TECHNIQUE: Axial computed tomography images of the chest without intravenous contrast using low dose (LDCT) lung cancer screening protocol. This CT exam was performed using one or more of the following dose reduction techniques: automated exposure control, adjustment of the mA and/or kV according to patient size, and/or use of iterative reconstruction technique. COMPARISON: No relevant prior studies available. FINDINGS: LUNGS AND PLEURAL SPACES: Right apical scarring. Lung emphysema/COPD. 2 mm subpleural nodule of the posterior lateral right lower lobe. Dependent atelectasis. No pneumothorax. No significant effusion. No suspicious pulmonary nodules. HEART: Unremarkable. No cardiomegaly. No significant pericardial effusion. No significant coronary artery calcifications. BONES/JOINTS: Unremarkable. No acute fracture. No dislocation. SOFT TISSUES: Unremarkable. VASCULATURE: Unremarkable. No thoracic aortic aneurysm. LYMPH NODES: Unremarkable. No enlarged lymph nodes. CT/Low Dose CT Lung Screening IMPRESSION: 1. No suspicious pulmonary nodules. 2. LUNG-RADS 2: Benign. Continue low-dose CT screening of the chest in 12 fri ths is recommended. Reading Location: [facility]
== END | disposition home or self-care (01) ==
LOC: CT 06:53
PROVIDERS: PCP Family Medicine; Referring Provider Family Medicine; Visit Provider Family Medicine
DX: Z12.2 Encounter for screening for malignant neoplasm of respiratory organs (principal); F17.200 Nicotine dependence, unspecified, uncomplicated
CPT/HCPCS: 71271

== ENCOUNTER → 2025-04-25 | Outpatient (CLI) | payer BC, SELFPAY ==
--- NOTE | 2025-04-25 16:52 | RAD_ITS ---
PROCEDURE: HIP, UNI W/ PELVIS 2-3 VIEWS 04/25/2025 REASON FOR EXAM: R HIP PAIN TECHNIQUE: Three views of the right hip COMPARISON: None. FINDINGS: Mild osteopenia of the visualized bones. Degenerative joint disease. No fracture or dislocation is seen. Metallic clips are noted in the pelvis. RAD/HIP, UNI W/ Pelvis 2-3 Views IMPRESSION: Osteopenia. Moderate degenerative joint disease of the right hip. No radiographic evidence of an acute bone abnormality. Reading [facility]
== END | disposition home or self-care (01) ==
LOC: MTRAD 16:26
PROVIDERS: PCP Family Medicine; Referring Provider Family Medicine; Visit Provider Family Medicine
DX: R10.30 Lower abdominal pain, unspecified (principal); M25.551 Pain in right hip
CPT/HCPCS: 73502

== ENCOUNTER → 2025-05-13 | Outpatient (CLI) | payer BC, SELFPAY ==
--- NOTE | 2025-05-13 09:45 | RAD_ITS ---
EXAM: XR Lumbosacral Spine, 2 or 3 Views CLINICAL INDICATION: BACK PAIN TECHNIQUE: Frontal and lateral views of the lumbar spine and sacrum. COMPARISON: No relevant prior studies available. FINDINGS: VERTEBRAE: Mild levoconvex curvature of the lumbar spine. Moderate endplate degenerative changes and disc disease of L4 the S1. Mild vertebral height loss of L5, likely chronic. No acute fracture. SACRUM/COCCYX: Unremarkable as visualized. No acute fracture. DISC SPACES: No acute findings. No significant narrowing. SOFT TISSUES: Unremarkable. RAD/Lumbar Spine 2 or 3 Views IMPRESSION: Degenerative changes as above. Reading Location: [id number]
== END | disposition home or self-care (01) ==
LOC: RAD 09:39 → MTRAD 09:55
PROVIDERS: PCP Family Medicine; Referring Provider Family Medicine; Visit Provider Family Medicine
DX: M54.9 Dorsalgia, unspecified (principal)
CPT/HCPCS: 72100

== ENCOUNTER → 2025-11-01 | Outpatient (CLI) | payer BC, SELFPAY ==
--- NOTE | 2025-11-01 15:20 | MRI_ITS ---
PROCEDURE: LOWER EXT JOINT ONLY (ROUTINE) 11/01/2025 REASON FOR EXAM: RT HIP OA TECHNIQUE: Procedure Code: [id number] Modality: MR Procedure: MRI of the right hip without contrast. Multiplanar and multisequence images were obtained without IV contrast administration. COMPARISON: COMPARISON : Right hip and pelvis study of 04/25/2025. FINDINGS: Limited imaging of the left hip demonstrates mild degenerative changes. No left hip joint effusion is seen. Degenerative changes are again seen of the visualized portions of the lumbar spine. Mild sacroiliac joint degenerative changes are seen. Moderate to moderately severe right hip joint degenerative changes are noted, with severe superior joint narrowing, osseous reactive changes, and deformities on both sides of the articulation. Some adjacent areas of soft tissue edema are seen, consistent with an inflammatory component. No substantial joint effusion is noted. No findings of femoral head osteonecrosis are seen. No other area of abnormal osseous signal is noted. Within the pelvis, no free fluid is seen. No inguinal or pelvic adenopathy is noted MRI/Lower Ext Joint Only (Routine) IMPRESSION: Asymmetric right hip joint degenerative changes, with probable adjacent inflamm atory response. Reading Location: [id number]
== END | disposition home or self-care (01) ==
PROVIDERS: PCP Family Medicine; Referring Provider Anesthesiology Pain Medicine; Visit Provider Anesthesiology Pain Medicine
DX: M16.11 Unilateral primary osteoarthritis, right hip (principal)
CPT/HCPCS: 73721